=== PATIENT | male | born 1960 | race Caucasian/White ===

== ENCOUNTER 2018-01-28 20:46 | Inpatient (IN) | payer SELFPAY ==
[2018-01-28 21:00] LABS: ADD MAN DIFF? NO
[2018-01-28 21:04] LABS: BASO # 0.1 x10^3/uL (0.0-0.2); BASO % 1 % (0-3); EOS # 0.1 x10^3/uL (0.0-0.7); EOS % 1 % (0-3); HEMATOCRIT 49.7 % (39.0-53.0); HEMOGLOBIN 17.8 g/dL (13.0-17.5); LYMPH # 2.5 x10^3/uL (1.0-4.8); LYMPH % 20 % (24-48); MEAN CORPUSCULAR HEMOGLOBIN 31 pg (25-35); MEAN CORPUSCULAR HGB CONC 36 g/dL (31-37); MEAN CORPUSCULAR VOLUME 86 fL (79-100); MONO # 0.8 x10^3/uL (0.0-1.1); MONO % 6 % (0-9); NEUT # 8.9 x10^3uL (1.8-7.7); NEUT % 72 % (31-73); PLATELET COUNT 194 x10^3/uL (140-400); RED CELL DISTRIBUTION WIDTH 13.9 % (11.5-14.5); WHITE BLOOD COUNT 12.3 x10^3/uL (4.0-11.0)
[2018-01-28] MEDS: ASPIRIN CHEWABLE 81 MG TABLET. PO (21:07)
[2018-01-28 21:11] LABS: ANION GAP 7 (6-14); BLOOD UREA NITROGEN 18 mg/dL (8-26); BUN/CREATININE RATIO 18 (6-20); CALCIUM 9.4 mg/dL (8.5-10.1); CARBON DIOXIDE 26 mmol/L (21-32); CHLORIDE 101 mmol/L (98-107); GFR 77.3; GLUCOSE 188 mg/dL (70-99); POTASSIUM 3.6 mmol/L (3.5-5.1); SODIUM 134 mmol/L (136-145)
[2018-01-28 21:18] LABS: ALK PHOS 107 U/L (46-116); ALT (SGPT) 32 U/L (16-63); AST (SGOT) 20 U/L (15-37); TOTAL BILIRUBIN 0.7 mg/dL (0.2-1.0); TOTAL PROTEIN 7.9 g/dL (6.4-8.2)
[2018-01-28 21:19] LABS: TROPONINI < 0.017 ng/mL (0.000-0.055)
[2018-01-28 21:22] LABS: NT-PRO BNP 56 pg/mL (0-124)
[2018-01-28] MEDS: ONDANSETRON PF 4 MG/2 ML VIAL. IV (21:33)
[2018-01-28] MEDS: fentaNYL PF VIAL 100 MCG/2 ML VIAL IV (21:33)
[2018-01-28] MEDS: NITROGLYCERIN SUBLINGUAL 0.4 MG BOTTLE OF 25. SL (21:33)
[2018-01-28] MEDS ORDERED: ONDANSETRON PF 4 MG/2 ML VIAL. IV (21:45)
[2018-01-28] MEDS ORDERED: ACETAMINOPHEN 325 MG TABLET. PO (21:45)
[2018-01-28] MEDS ORDERED: fentaNYL PF VIAL 100 MCG/2 ML VIAL IV (21:45)
[2018-01-28] MEDS: NITROGLYCERIN OINT 1 GM PACKET. TP (21:56)
[2018-01-29 02:03] LABS: TROPONINI < 0.017 ng/mL (0.000-0.055)
[2018-01-29 05:02] LABS: TROPONINI < 0.017 ng/mL (0.000-0.055)
[2018-01-29] MEDS ORDERED: HYDROcodone/APAP 7.5/325MG 1 TAB TABLET PO (08:30)
[2018-01-29 08:53] LABS: CHOLESTEROL 128 mg/dL (0-200); CHOLESTEROL/HDL RATIO 6.1; HDLC 21 mg/dL (40-60); LDLC 34 mg/dL (0-100); NON-HDL CHOLESTEROL 107 mg/dL (0-129); TRIGLYCERIDES 364 mg/dL (0-150); VLDLC 73 mg/dL (0-40)
[2018-01-29 10:58] LABS: POC GLUCOSE 216 mg/dL (70-99)
[2018-01-29] MEDS ORDERED: DEXTROSE 50% 25 GM / 50ML DISP.SYRIN. IV (11:00)
[2018-01-29 11:18] LABS: MAGNESIUM 1.8 mg/dL (1.8-2.4)
[2018-01-29] MEDS: REGADENOSON 0.4 MG/5 ML DISP.SYRIN. IV (14:09)
[2018-01-29] MEDS: ASPIRIN ENTERIC COATED 81 MG TABLET.DR. PO (15:01)
[2018-01-29] MEDS: GLIMEPIRIDE 2 MG TABLET. PO (15:01)
[2018-01-29] MEDS: metFORMIN 500 MG TABLET PO ×2 (15:01→16:44)
[2018-01-29] MEDS: PANTOPRAZOLE 40 MG TABLET.DR. PO (15:01)
[2018-01-29 20:51] LABS: POC GLUCOSE 167 mg/dL (70-99)
[2018-01-29] MEDS: SIMVASTATIN 20 MG TABLET PO (21:12)
[2018-01-29 22:17] LABS: MRSA BY PCR Negative (Negative)
[2018-01-30] MEDS: PANTOPRAZOLE 40 MG TABLET.DR. PO (06:30)
[2018-01-30] MEDS: metFORMIN 500 MG TABLET PO (07:25)
[2018-01-30] MEDS: ASPIRIN ENTERIC COATED 81 MG TABLET.DR. PO (07:26)
[2018-01-30] MEDS: GLIMEPIRIDE 2 MG TABLET. PO (07:27)
[2018-01-30 08:16] LABS: POC GLUCOSE 219 mg/dL (70-99)
[2018-01-30 12:00] LABS: POC GLUCOSE 213 mg/dL (70-99)
== END 2018-01-30 15:32 | disposition home or self-care (01) | DRG 316 ==
LOC: 2 NORTH 01-29 15:54 → ER 20:46 → 1 WEST ICU 21:35
DX: I95.9 Hypotension, unspecified (principal); E11.65 Type 2 diabetes mellitus with hyperglycemia; R07.89 Other chest pain; E66.9 Obesity, unspecified; E78.5 Hyperlipidemia, unspecified; F17.210 Nicotine dependence, cigarettes, uncomplicated; G47.33 Obstructive sleep apnea (adult) (pediatric); I10 Essential (primary) hypertension; K21.9 Gastro-esophageal reflux disease without esophagitis; G89.29 Other chronic pain; M19.90 Unspecified osteoarthritis, unspecified site; Z96.659 Presence of unspecified artificial knee joint; N52.9 Male erectile dysfunction, unspecified; Z79.82 Long term (current) use of aspirin; Z82.49 Family history of ischemic heart disease and other diseases of the circulatory system; Z86.010 Personal history of colon polyps; Z68.34 Body mass index [BMI] 34.0-34.9, adult; Z71.6 Tobacco abuse counseling; Z90.49 Acquired absence of other specified parts of digestive tract
CPT/HCPCS: 36415; 71045; 78452; 80053; 80061; 82962; 83735; 83880; 84484; 85025; 85379; 87641; 93005; 93017; 93306; 96374; 96375; 96376; 99285; 99285-25; A9500; J2405; J2785; J3010

== ENCOUNTER 2018-12-18 16:33 | Inpatient (IN) | payer OTHER ==
[~2018-12-18] VITALS: Ht 180.3 cm; Wt 113.4 kg
[~2018-12-18 16:33] MED LIST: AMLO10TA8 PO; ASPI-612 PO; ATOR40TA59 PO; GABA300C18 PO; GLIM1TAB2 PO; HYDR-2765 PO; HYDR-3164 PO; HYDR12.575 PO; HYDR12.58 PO; HYDR200T5 PO; LEVO50TA5 PO; LISI20TA PO; LOSA-73 PO; MELO7.5T29 PO; METF500T16 PO; OMEP40CA5 PO; SIMV10TA PO; SIMV20TA3 PO; TIZA4TAB PO
[2018-12-18 17:01] LABS: BASO # 0.1 x10^3/uL (0.0-0.2); BASO % 1 % (0-3); EOS # 0.1 x10^3/uL (0.0-0.7); EOS % 2 % (0-3); HEMOGLOBIN 16.6 g/dL (13.0-17.5); LYMPH # 1.8 x10^3/uL (1.0-4.8); LYMPH % 20 % (24-48); MEAN CORPUSCULAR HEMOGLOBIN 30 pg (25-35); MEAN CORPUSCULAR HGB CONC 35 g/dL (31-37); MEAN CORPUSCULAR VOLUME 87 fL (79-100); MONO # 0.5 x10^3/uL (0.0-1.1); MONO % 5 % (0-9); NEUT # 6.7 x10^3uL (1.8-7.7); NEUT % 73 % (31-73); PLATELET COUNT 164 x10^3/uL (140-400); RED BLOOD COUNT 5.55 x10^6/uL (4.30-5.70); WHITE BLOOD COUNT 9.2 x10^3/uL (4.0-11.0)
[2018-12-18 17:10] LABS: CALCIUM 9.3 mg/dL (8.5-10.1); CREATININE 1.1 mg/dL (0.7-1.3); POTASSIUM 3.9 mmol/L (3.5-5.1)
--- NOTE | 2018-12-18 17:13 | PHYS DOC ---
Past Medical History Past Medical History: Diabetes-Type II, GERD, High Cholesterol, Hypertension Additional Past Medical Histor: Neuropathy, CHRONIC PAIN Past Surgical History: Cholecystectomy, Knee Replacement Additional Past Surgical Histo: neck surgery Smoking: Cigarettes Alcohol Use: None Drug Use: None Adult General Chief Complaint Chief Complaint: syncope HPI HPI 58-year-old male presenting the emergency department today [place] bank[place] He reports prior to the event he was feeling fine. He then passed out. This was a witnessed event. He was out for about 2 minutes and he reports having a generalized shaking episode of his upper and lower extremities. He did not bite his tongue or have fecal or urinary incontinence. He then had a postictal confusion. Past medical history: Emphysema, hypertension, hyperlipidemia, diabetes mellitus Past surgical history: History of cholecystectomy, knee surgery, and neck surgery Social history, denies IV drug use. Endorses smoking and denies drinking alcohol. Review of systems is negative for chest pain shortness of breath abdominal pain fevers chills headache neck stiffness. All other review of systems is negative unless otherwise noted in history of present illness. ED course: 58-year-old male presenting the emergency department today with syncopal episode. EKG ordered along with blood work and head CT and x-rays of the low back as the patient has low back pain after his fall. EKG reviewed by myself shows sinus rhythm with a regular rate. ST segments are congruent. Not suggestive of ACS. X-rays reviewed of the lumbar spine, sacrum, and chest x-ray. Sacrum shows probable sacral fracture. Lumbar spine shows no obvious acute abnormality. Chest x-ray shows mild increased congestion without effusions. Otherwise no obvious acute abnormalities. Reviewed by myself in real-time without radiology reads. Patient's magnesium is low. We will replace the magnesium. We will admit the patient for telemetry. I spoke to Dr. biswas who accepts the patient for admission. Troponin negative. Review of Systems Review of Systems SEE ABOVE. Current Medications Current Medications Current Medications Medications (Trade) Dose Ordered Sig/Elie Start Time Stop Time Status Last Admin Dose Admin Fentanyl Citrate (Fentanyl 2ml Vial) 50 mcg PRN Q30MIN PRN 12/18/18 18:00 Magnesium Sulfate 50 ml @ 10 mls/hr 1X ONCE 12/18/18 18:45 12/18/18 23:44 UNV Morphine Sulfate (Morphine Sulfate) 2 mg PRN Q2HR PRN 12/18/18 17:45 12/19/18 17:44 12/18/18 18:10 2 MG Ondansetron HCl (Zofran) 4 mg PRN Q8HRS PRN 12/18/18 17:45 12/19/18 17:44 12/18/18 18:10 4 MG Sodium Chloride 1,000 ml @ 100 mls/hr Q10H 12/18/18 17:37 12/18/18 21:36 Allergies Allergies Allergies Coded Allergies Type Severity Reaction Last Updated Verified No Known Drug Allergies 12/16/14 No Physical Exam Physical Exam SEE ABOVE Constitutional: Well developed, well nourished, no acute distress, non-toxic appearance. HENT: Normocephalic, atraumatic, bilateral external ears normal, oropharynx moist, no oral exudates, nose normal. [] Eyes: PERRLA, EOMI, conjunctiva normal, no discharge. Neck: Normal range of motion, no tenderness, supple, no stridor. Cardiovascular:Heart rate regular rhythm, no murmur Lungs & Thorax: Bilateral breath sounds clear to auscultation Abdomen: Bowel sounds normal, soft, no tenderness, no masses, no pulsatile masses. [] Skin: Warm, dry, no erythema, no rash. Back: Patient has mild tenderness of the lower lumbar and sacrum. No step-offs abrasions lacerations or ecchymosis. Extremities: No tenderness, no cyanosis, no clubbing, ROM intact, no edema. Palpable pulses in upper extremities bilaterally. Neurologic: Alert and oriented X 3, normal motor function, normal sensory function, no focal deficits noted. [] Psychologic: Affect normal, judgement normal, mood normal. Current Patient Data Vital Signs Vital Signs Date Time Temp Pulse Resp B/P (MAP) Pulse Ox O2 Delivery O2 Flow Rate FiO2 12/18/18 18:10 20 94 Nasal Cannula 3.0 12/18/18 16:33 98.1 100 115/72 (86) 98.1 Lab Values Laboratory Tests Test 12/18/18 16:45 White Blood Count 9.2 x10^3/uL (4.0-11.0) Red Blood Count 5.55 x10^6/uL (4.30-5.70) Hemoglobin 16.6 g/dL (13.0-17.5) Hematocrit 48.0 % (39.0-53.0) Mean Corpuscular Volume 87 fL (79-100) Mean Corpuscular Hemoglobin 30 pg (25-35) Mean Corpuscular Hemoglobin Concent 35 g/dL (31-37) Red Cell Distribution Width 14.0 % (11.5-14.5) Platelet Count 164 x10^3/uL (140-400) Neutrophils (%) (Auto) 73 % (31-73) Lymphocytes (%) (Auto) 20 % (24-48) L Monocytes (%) (Auto) 5 % (0-9) Eosinophils (%) (Auto) 2 % (0-3) Basophils (%) (Auto) 1 % (0-3) Neutrophils # (Auto) 6.7 x10^3uL (1.8-7.7) Lymphocytes # (Auto) 1.8 x10^3/uL (1.0-4.8) Monocytes # (Auto) 0.5 x10^3/uL (0.0-1.1) Eosinophils # (Auto) 0.1 x10^3/uL (0.0-0.7) Basophils # (Auto) 0.1 x10^3/uL (0.0-0.2) Sodium Level 138 mmol/L (136-145) Potassium Level 3.9 mmol/L (3.5-5.1) Chloride Level 99 mmol/L (98-107) Carbon Dioxide Level 31 mmol/L (21-32) Anion Gap 8 (6-14) Blood Urea Nitrogen 13 mg/dL (8-26) Creatinine 1.1 mg/dL (0.7-1.3) Estimated GFR (Cockcroft-Gault) 69.0 BUN/Creatinine Ratio 12 (6-20) Glucose Level 209 mg/dL (70-99) H Calcium Level 9.3 mg/dL (8.5-10.1) Magnesium Level 1.7 mg/dL (1.8-2.4) L Total Bilirubin 0.8 mg/dL (0.2-1.0) Aspartate Amino Transferase (AST) 20 U/L (15-37) Alanine Aminotransferase (ALT) 32 U/L (16-63) Alkaline Phosphatase 111 U/L (46-116) Troponin I Quantitative < 0.017 ng/mL (0.000-0.055) Total Protein 7.3 g/dL (6.4-8.2) Albumin 4.0 g/dL (3.4-5.0) Albumin/Globulin Ratio 1.2 (1.0-1.7) Laboratory Tests 12/18/18 16:45 Laboratory Tests 12/18/18 16:45 EKG EKG [] Radiology/Procedures Radiology/Procedures [] Course & Med Decision Making Course & Med Decision Making Pertinent Labs and Imaging studies reviewed. (See chart for details) [] Dragon Disclaimer Dragon Disclaimer This electronic medical record was generated, in whole or in part, using a voice recognition dictation system. Departure Departure Impression: Primary Impression: Syncope Disposition: 09 ADMITTED INPATIENT Admitting Physician: Kathleen Biswas Condition: STABLE Referrals: DIANNA LENNON MD (PCP) PABLO DE LA PAZ MD Dec 18, 2018 17:13
[2018-12-18 17:16] LABS: ALBUMIN/GLOBULIN RATIO 1.2 (1.0-1.7); MAGNESIUM 1.7 mg/dL (1.8-2.4); TOTAL BILIRUBIN 0.8 mg/dL (0.2-1.0); TOTAL PROTEIN 7.3 g/dL (6.4-8.2)
[2018-12-18] MEDS ORDERED: IV NORMAL SALINE 1000ML BAG 1,000 ML IV ONE (17:30)
[2018-12-18] MEDS ORDERED: IV NORMAL SALINE 1000ML BAG 1,000 ML IV SCH (17:37)
--- NOTE | 2018-12-18 17:42 | RAD ---
CT HEAD WO CONTRAST History: Syncope for 2 minutes Comparison: March 10, 2015 Technique: Noncontrast CT imaging was performed of the head. Exposure: One or more of the following individualized dose reduction techniques were utilized for this examination: 1. Automated exposure control 2. Adjustment of the mA and/or kV according to patient size 3. Use of iterative reconstruction technique. Findings: There is mild motion. No acute extra-axial or parenchymal hemorrhage is identified. There is no significant intra-axial mass effect, midline shift, or extra-axial fluid collection. The mccollum-white differentiation of the major vascular territories is preserved. The ventricles, sulci, and cisterns are within normal limits in size and configuration. Mastoid air cells are aerated. There is moderate to severe right maxillary sinus mucosal thickening. No acute calvarial abnormality is identified. Impression: 1. No acute intracranial abnormality is identified. Electronically signed by: Mata Irizarry MD (12/18/2018 5:39 PM) [facility]
[2018-12-18] MEDS ORDERED: ONDANSETRON PF 4 MG/2 ML VIAL. IV PRN (17:45)
[2018-12-18] MEDS ORDERED: fentaNYL PF VIAL 100 MCG/2 ML VIAL IV PRN (18:00)
[2018-12-18] MEDS: MORPHINE SULFATE 2 MG/ML VIAL. IV PRN ×2 (18:10→20:24)
[2018-12-18] MEDS ORDERED: MAGNESIUM SULFATE 2GM 50 ML IV ONE (18:45)
--- NOTE | 2018-12-18 19:32 | RAD ---
LUMBAR SPINE 2-3V History: Fall today, syncopal episode, pain Comparison: April 19, 2016 Findings: 3 views lumbar spine are submitted. There is very mild superior endplate concavity of L1 more apparent on this exam. There is facet degenerative change greater inferiorly of the lumbar spine. Impression: 1. There is mild superior endplate concavity of L1 more apparent on this exam. MRI would more accurately characterize if there is recent compression fracture. Electronically signed by: Mata Irizarry MD (12/18/2018 7:29 PM) [facility]
--- NOTE | 2018-12-18 19:34 | RAD ---
PORTABLE CHEST 1V History: Fall today, pain, syncopal episode Comparison: January 28, 2018 Findings: AP view of the chest is submitted. There is cervical fusion hardware not fully included. Cardiac silhouette is stable. There is no dependent pleural fluid or pneumothorax. There is no lobar consolidation. There is no apical capping. Aortic stripe is visualized. Impression: 1. No acute radiographic abnormality is identified. Electronically signed by: Mata Irizarry MD (12/18/2018 7:31 PM) [facility]
--- NOTE | 2018-12-18 19:39 | RAD ---
SACRUM COCCYX 3V History: Trauma, fall today, sacral pain radiating to the lumbar region Comparison: None. Findings: 3 views of the sacrum and coccyx are submitted. No acute fracture is identified by radiographs. Impression: 1. No acute fracture is identified of the sacrum or coccyx by radiographs. Electronically signed by: Mata Irizarry MD (12/18/2018 7:36 PM) [facility]
[2018-12-18 19:56] VITALS: BP 135/88
[2018-12-18] MEDS ORDERED: HYDROcodone/APAP 7.5/325MG 1 TAB TABLET PO PRN (20:00)
[2018-12-18] MEDS ORDERED: BUDE10.2 IH (21:32)
[2018-12-18] MEDS ORDERED: ALBU2.5V8 INH (21:32)
[2018-12-18] MEDS ORDERED: HYDR-2769 PO (21:32)
[2018-12-18 23:15] VITALS: BP 113/72
[2018-12-19] VITALS (8 sets, daily range): BP systolic 117–139; BP diastolic 68–90
[2018-12-19] MEDS: MORPHINE SULFATE 2 MG/ML VIAL. IV PRN (00:38)
[2018-12-19 05:37] LABS: BASO % 0 % (0-3); EOS # 0.1 x10^3/uL (0.0-0.7); EOS % 2 % (0-3); HEMATOCRIT 46.7 % (39.0-53.0); HEMOGLOBIN 16.3 g/dL (13.0-17.5); LYMPH # 1.7 x10^3/uL (1.0-4.8); LYMPH % 18 % (24-48); MEAN CORPUSCULAR HEMOGLOBIN 30 pg (25-35); MEAN CORPUSCULAR HGB CONC 35 g/dL (31-37); MEAN CORPUSCULAR VOLUME 88 fL (79-100); MONO # 0.6 x10^3/uL (0.0-1.1); MONO % 6 % (0-9); NEUT # 6.8 x10^3uL (1.8-7.7); NEUT % 73 % (31-73); PLATELET COUNT 156 x10^3/uL (140-400); RED BLOOD COUNT 5.34 x10^6/uL (4.30-5.70); RED CELL DISTRIBUTION WIDTH 13.7 % (11.5-14.5); WHITE BLOOD COUNT 9.3 x10^3/uL (4.0-11.0)
[2018-12-19 06:03] LABS: ALBUMIN 3.6 g/dL (3.4-5.0); CALCIUM 8.5 mg/dL (8.5-10.1); CREATININE 0.8 mg/dL (0.7-1.3); GFR 99.6; POTASSIUM 4.1 mmol/L (3.5-5.1); TOTAL BILIRUBIN 0.8 mg/dL (0.2-1.0); TOTAL PROTEIN 7.1 g/dL (6.4-8.2)
[2018-12-19] MEDS ORDERED: ALBUTEROL SULFATE 2.5 MG/3 ML NEBU. INH PRN (09:30)
--- NOTE | 2018-12-19 10:11 | HP ---
ADMIT DATE: 12/18/[address] Paul Foster. CHIEF COMPLAINT AND HISTORY OF PRESENT ILLNESS: This 58-year-old white male had purchased a minivan and left at the bank parking lot. He was there with his to pick it up, when he had a fall, which he braced partially backwards, and he feels like she at least protected his head. His major complaint is pain in his tailbone at this point in time. By history of , the patient was out for approximately 2 minutes, had what appeared to be tonic-clonic seizure type activity and some postictal sleepiness afterwards. He denies loss of bowel or bladder or chewing up of his tongue with the same. CT scanning in the Emergency Room was negative of the head. Lumbar spine and sacrococcygeal films did not show acute fracture, and chest x-ray showed no acute abnormalities. CBC was normal, as was basically CMP other than the fact that he did have slightly depressed magnesium at 1.7 and blood sugars of 150-200. PAST MEDICAL HISTORY: Remarkable for diabetes, hyperlipidemia, GERD, hypertension, neuropathy, chronic pain. PAST SURGICAL HISTORY: He has had prior neck surgery, cholecystectomy, knee replacement. SOCIAL HISTORY: He is a smoker, nondrinker, does not use drugs. Lives at home with his . FAMILY HISTORY: Noncontributory. MEDICATIONS: Brought with the patient, listed on the computer and have been addressed. ALLERGIES: He has no known drug allergies. REVIEW OF SYSTEMS: As mentioned above. PHYSICAL EXAMINATION: GENERAL: He is a well-developed, well-nourished white male, lying in bed, in no acute distress. VITAL SIGNS: Stable. He is afebrile. HEAD, EYES, EARS, NOSE AND THROAT: Unremarkable. NECK: Supple, without adenopathy or thyromegaly. CHEST: Clear to auscultation and percussion with somewhat decreased breath sounds. HEART: Regular rate and rhythm without S3, S4 or murmur. ABDOMEN: Soft, nontender, without hepatosplenomegaly or mass. EXTREMITIES: Without cyanosis, clubbing, edema. NEUROLOGIC: Nonfocal. IMPRESSION: 1. Syncope versus seizure, more likely seizure by the description. 2. Multiple other problems listed above. PLAN: The patient has been admitted. Neurology and Cardiology will be seeing the patient for opinions, and the patient will be monitored, managed and treated appropriately. QUINN PRESTON MD DR: Minal JOB#: [id number] / [id number]
--- NOTE | 2018-12-19 11:18 | EKG ---
[facility] [address] [place] [address] Test Date: 2018-12-19 Test Time: 09:15:31 Pat Name: ADOLFO TAM Department: Room: [facility] Gender: Lathe Set Up Person: : 1960 Requested By: PABLO DE LA PAZ Order Number: [id number] Reading MD: Gray Eubanks MD Measurements Intervals Waldo Rate: P: IN: QRS: QRSD: T: QT: QTc: Interpretive Statements SR PVC PROBABLE SEPTAL INFARCT IVCD Electronically Signed On 12-21-2018 10:16:11 CDT by Gray Eubanks MD
[2018-12-19] MEDS: ALBUTEROL SULFATE 2.5 MG/3 ML NEBU. NEB SCH ×3 (11:30→20:03)
[2018-12-19] MEDS: LISINOPRIL 20 MG TABLET PO SCH ×2 (12:10→20:30)
[2018-12-19] MEDS: PANTOPRAZOLE 40 MG TABLET.DR. PO SCH (12:10)
[2018-12-19] MEDS: hydroCHLOROthiazide 25 MG TABLET PO SCH (12:10)
[2018-12-19] MEDS: GLIMEPIRIDE 2 MG TABLET. PO SCH (12:11)
--- NOTE | 2018-12-19 12:44 | PDOC2 ---
CONSULT Date of Consult Date of Consult DATE: 12/19/18 TIME: 12:37 Reason for Consult Reason for Consult: Syncope. Referring Physician Referring Physician: Dr. Varela Identification/Chief Complaint Chief Complaint Syncope Source Source: Patient History of Present Illness Reason for Visit: The patient is a pleasant 58-year-old male who had an episode of syncope prior to presentation in the emergency room. He had purchased a new vehicle yesterday and later in the day was attempting to show his his new van. By his report he became acutely lightheaded and fell. The next memory he has is being held up by his on the ground. He states his reported that he abruptly lost consciousness and she held his head so he would not hit the ground. He denied any chest pain, shortness of breath or any presyncopal symptoms. He reportedly had episodes of shaking immediately at the time of this episode. He was transported to the emergency room and his rhythm has remained stable overnight. CT head scan shows no acute abnormalities. Chest x-ray showed no acute changes. Troponin has been normal. Magnesium was minimally decreased. This morning his main complaint is his back pain after his fall. He denies chest pain, shortness of breath, dizziness or lightheadedness. Denies any previous episodes of syncope. Past Medical History Cardiovascular: HTN, Hyperlipidemia Pulmonary: COPD, Other CENTRAL NERVOUS SYSTEM: Other GI: GERD, Other Hepatobiliary: Hep A/B/C Musculoskeletal: Osteoarthritis Rheumatologic: No pertinent hx Infectious disease: No pertinent hx Renal/: No pertinent hx Endocrine: Diabetes Past Surgical History Past Surgical History: Arthroscopy, Cholecystectomy, Other Family History Family History: Coronary Artery Disease, Heart Disease Social History <1 pack per day ALCOHOL: none Drugs: None Lives: with Family Current Problem List Problem List Problems Medical Problems: (1) Syncope Status: Acute Current Medications Current Medications Current Medications Sodium Chloride 1,000 ml @ 1,000 mls/hr 1X ONCE IV ; Start 12/18/18 at 17:30; Stop 12/18/18 at 18:29; Status DC Ondansetron HCl (Zofran) 4 mg PRN Q8HRS PRN IV NAUSEA/VOMITING Last administered on 12/18/18at 18:10; Start 12/18/18 at 17:45; Stop 12/19/18 at 17:44 Morphine Sulfate (Morphine Sulfate) 2 mg PRN Q2HR PRN IV PAIN Last administered on 12/19/18at 00:38; Start 12/18/18 at 17:45; Stop 12/19/18 at 17:44 Sodium Chloride 1,000 ml @ 100 mls/hr Q10H IV Last administered on 12/18/18at 20:31; Start 12/18/18 at 17:37; Stop 12/18/18 at 21:36; Status DC Fentanyl Citrate (Fentanyl 2ml Vial) 50 mcg PRN Q30MIN PRN IV SEVERE PAIN; Start 12/18/18 at 18:00 Magnesium Sulfate 50 ml @ 10 mls/hr 1X ONCE IV Last administered on 12/18/18at 20:41; Start 12/18/18 at 18:45; Stop 12/18/18 at 23:44; Status DC Acetaminophen/ Hydrocodone Bitart (Lortab 7.5/325) 1 tab PRN Q6HRS PRN PO PAIN ; Start 12/18/18 at 20:00 Albuterol Sulfate (Ventolin Neb Soln) 3 mg PRN Q6HRS PRN INH SHORTNESS OF BREATH; Start 12/19/18 at 09:30 Amlodipine Besylate (Norvasc) 10 mg DAILY PO ; Start 12/20/18 at 09:00 Aspirin (Ecotrin) 81 mg DAILYWBKFT PO ; Start 12/20/18 at 08:00 Atorvastatin Calcium (Lipitor) 40 mg DAILY PO ; Start 12/20/18 at 09:00 Acetaminophen/ Hydrocodone Bitart (Lortab 10/325) 1 tab PRN Q6HRS PRN PO PAIN; Start 12/19/18 at 09:30 Lisinopril (Prinivil) 20 mg BID PO Last administered on 12/19/18at 12:10; Start 12/19/18 at 10:00 Non-Formulary Medication (Budesonide/ Formoterol Fumarate (Symbicort 160-4.5 Mcg Inhaler)) 1 puff BID IH ; Start 12/19/18 at 21:00; Stop 12/19/18 at 21:00; Status DC Glimepiride (Amaryl) 1 mg DAILY PO Last administered on 12/19/18at 12:11; Start 12/19/18 at 10:00 Hydrochlorothiazide (Hydrodiuril) 25 mg DAILY PO Last administered on at 12:10; Start 12/19/18 at 10:00 Metformin HCl (Glucophage) 1,000 mg BIDWMEALS PO ; Start 12/19/18 at 17:00 Pantoprazole Sodium (Protonix) 40 mg DAILYAC PO Last administered on 12/19/18at 12:10; Start 12/19/18 at 10:00 Budesonide (Pulmicort) 0.5 mg RTBID NEB ; Start 12/19/18 at 20:00 Albuterol Sulfate (Ventolin Neb Soln) 2.5 mg RTQID NEB Last administered on at 11:30; Start 12/19/18 at 12:00 Active Scripts Active Atorvastatin Calcium 40 Mg Tablet 1 Tab PO DAILY 30 Days Aspirin Ec (Aspirin) 81 Mg Tablet.dr 81 Mg PO DAILYWBKFT 30 Days Prinivil (Lisinopril) 20 Mg Tablet 20 Mg PO BID Reported Proair Hfa Inhaler (Albuterol Sulfate) 8.5 Gm Hfa.aer.ad 1 Puff INH PRN Q6HRS PRN Symbicort 160-4.5 Mcg Inhaler (Budesonide/Formoterol Fumarate) 10.2 Gm Hfa.aer.ad 1 Puff IH BID Hydrocodone-Apap 10-325 (Hydrocodone Bit/Acetaminophen) 1 Tab Tablet 1 Tab PO PRN Q6HRS PRN Glimepiride 1 Mg Tablet 1 Tab PO DAILY Hydrochlorothiazide Tablet (Hydrochlorothiazide) 12.5 Mg Tablet 2 Tab PO DAILY Amlodipine Besylate 10 Mg Tablet 10 Mg PO DAILY Omeprazole 40 Mg Capsule.dr 40 Mg PO DAILY Metformin Hcl 500 Mg Tablet 1,000 Mg PO BIDWMEALS Allergies Allergies: Coded Allergies: No Known Drug Allergies (Unverified , 12/16/14) ROS Neurological: Yes Other (syncope as above) Physical Exam General: No acute distress HEENT: Atraumatic Lungs: Clear to auscultation Heart: Regular rate Abdomen: Normal bowel sounds Vitals VITALS Vital Signs Date Time Temp Pulse Resp B/P (MAP) Pulse Ox O2 Delivery O2 Flow Rate FiO2 12/19/18 12:10 83 139/90 12/19/18 11:32 96 Nasal Cannula 3.0 12/19/18 10:55 98.0 20 98.0 Labs Labs Laboratory Tests Test 12/18/18 16:45 12/19/18 05:00 White Blood Count 9.2 x10^3/uL (4.0-11.0) 9.3 x10^3/uL (4.0-11.0) Red Blood Count 5.55 x10^6/uL (4.30-5.70) 5.34 x10^6/uL (4.30-5.70) Hemoglobin 16.6 g/dL (13.0-17.5) 16.3 g/dL (13.0-17.5) Hematocrit 48.0 % (39.0-53.0) 46.7 % (39.0-53.0) Mean Corpuscular Volume 87 fL (79-100) 88 fL (79-100) Mean Corpuscular Hemoglobin 30 pg (25-35) 30 pg (25-35) Mean Corpuscular Hemoglobin Concent 35 g/dL (31-37) 35 g/dL (31-37) Red Cell Distribution Width 14.0 % (11.5-14.5) 13.7 % (11.5-14.5) Platelet Count 164 x10^3/uL (140-400) 156 x10^3/uL (140-400) Neutrophils (%) (Auto) 73 % (31-73) 73 % (31-73) Lymphocytes (%) (Auto) 20 % (24-48) 18 % (24-48) Monocytes (%) (Auto) 5 % (0-9) 6 % (0-9) Eosinophils (%) (Auto) 2 % (0-3) 2 % (0-3) Basophils (%) (Auto) 1 % (0-3) 0 % (0-3) Neutrophils # (Auto) 6.7 x10^3uL (1.8-7.7) 6.8 x10^3uL (1.8-7.7) Lymphocytes # (Auto) 1.8 x10^3/uL (1.0-4.8) 1.7 x10^3/uL (1.0-4.8) Monocytes # (Auto) 0.5 x10^3/uL (0.0-1.1) 0.6 x10^3/uL (0.0-1.1) Eosinophils # (Auto) 0.1 x10^3/uL (0.0-0.7) 0.1 x10^3/uL (0.0-0.7) Basophils # (Auto) 0.1 x10^3/uL (0.0-0.2) 0.0 x10^3/uL (0.0-0.2) Sodium Level 138 mmol/L (136-145) 141 mmol/L (136-145) Potassium Level 3.9 mmol/L (3.5-5.1) 4.1 mmol/L (3.5-5.1) Chloride Level 99 mmol/L (98-107) 104 mmol/L (98-107) Carbon Dioxide Level 31 mmol/L (21-32) 29 mmol/L (21-32) Anion Gap 8 (6-14) 8 (6-14) Blood Urea Nitrogen 13 mg/dL (8-26) 15 mg/dL (8-26) Creatinine 1.1 mg/dL (0.7-1.3) 0.8 mg/dL (0.7-1.3) Estimated GFR (Cockcroft-Gault) 69.0 99.6 BUN/Creatinine Ratio 12 (6-20) 19 (6-20) Glucose Level 209 mg/dL (70-99) 162 mg/dL (70-99) Calcium Level 9.3 mg/dL (8.5-10.1) 8.5 mg/dL (8.5-10.1) Magnesium Level 1.7 mg/dL (1.8-2.4) Total Bilirubin 0.8 mg/dL (0.2-1.0) 0.8 mg/dL (0.2-1.0) Aspartate Amino Transf (AST/SGOT) 20 U/L (15-37) 23 U/L (15-37) Alanine Aminotransferase (ALT/SGPT) 32 U/L (16-63) 33 U/L (16-63) Alkaline Phosphatase 111 U/L (46-116) 94 U/L (46-116) Troponin I Quantitative < 0.017 ng/mL (0.000-0.055) SB-Dqa-Y-Type Natriuretic Peptide 34 pg/mL (0-124) Total Protein 7.3 g/dL (6.4-8.2) 7.1 g/dL (6.4-8.2) Albumin 4.0 g/dL (3.4-5.0) 3.6 g/dL (3.4-5.0) Albumin/Globulin Ratio 1.2 (1.0-1.7) 1.0 (1.0-1.7) Laboratory Tests Test 12/18/18 16:45 12/19/18 05:00 White Blood Count 9.2 x10^3/uL (4.0-11.0) 9.3 x10^3/uL (4.0-11.0) Red Blood Count 5.55 x10^6/uL (4.30-5.70) 5.34 x10^6/uL (4.30-5.70) Hemoglobin 16.6 g/dL (13.0-17.5) 16.3 g/dL (13.0-17.5) Hematocrit 48.0 % (39.0-53.0) 46.7 % (39.0-53.0) Mean Corpuscular Volume 87 fL (79-100) 88 fL (79-100) Mean Corpuscular Hemoglobin 30 pg (25-35) 30 pg (25-35) Mean Corpuscular Hemoglobin Concent 35 g/dL (31-37) 35 g/dL (31-37) Red Cell Distribution Width 14.0 % (11.5-14.5) 13.7 % (11.5-14.5) Platelet Count 164 x10^3/uL (140-400) 156 x10^3/uL (140-400) Neutrophils (%) (Auto) 73 % (31-73) 73 % (31-73) Lymphocytes (%) (Auto) 20 % (24-48) 18 % (24-48) Monocytes (%) (Auto) 5 % (0-9) 6 % (0-9) Eosinophils (%) (Auto) 2 % (0-3) 2 % (0-3) Basophils (%) (Auto) 1 % (0-3) 0 % (0-3) Neutrophils # (Auto) 6.7 x10^3uL (1.8-7.7) 6.8 x10^3uL (1.8-7.7) Lymphocytes # (Auto) 1.8 x10^3/uL (1.0-4.8) 1.7 x10^3/uL (1.0-4.8) Monocytes # (Auto) 0.5 x10^3/uL (0.0-1.1) 0.6 x10^3/uL (0.0-1.1) Eosinophils # (Auto) 0.1 x10^3/uL (0.0-0.7) 0.1 x10^3/uL (0.0-0.7) Basophils # (Auto) 0.1 x10^3/uL (0.0-0.2) 0.0 x10^3/uL (0.0-0.2) Sodium Level 138 mmol/L (136-145) 141 mmol/L (136-145) Potassium Level 3.9 mmol/L (3.5-5.1) 4.1 mmol/L (3.5-5.1) Chloride Level 99 mmol/L (98-107) 104 mmol/L (98-107) Carbon Dioxide Level 31 mmol/L (21-32) 29 mmol/L (21-32) Anion Gap 8 (6-14) 8 (6-14) Blood Urea Nitrogen 13 mg/dL (8-26) 15 mg/dL (8-26) Creatinine 1.1 mg/dL (0.7-1.3) 0.8 mg/dL (0.7-1.3) Estimated GFR (Cockcroft-Gault) 69.0 99.6 BUN/Creatinine Ratio 12 (6-20) 19 (6-20) Glucose Level 209 mg/dL (70-99) 162 mg/dL (70-99) Calcium Level 9.3 mg/dL (8.5-10.1) 8.5 mg/dL (8.5-10.1) Magnesium Level 1.7 mg/dL (1.8-2.4) Total Bilirubin 0.8 mg/dL (0.2-1.0) 0.8 mg/dL (0.2-1.0) Aspartate Amino Transf (AST/SGOT) 20 U/L (15-37) 23 U/L (15-37) Alanine Aminotransferase (ALT/SGPT) 32 U/L (16-63) 33 U/L (16-63) Alkaline Phosphatase 111 U/L (46-116) 94 U/L (46-116) Troponin I Quantitative < 0.017 ng/mL (0.000-0.055) PW-Qwv-Z-Type Natriuretic Peptide 34 pg/mL (0-124) Total Protein 7.3 g/dL (6.4-8.2) 7.1 g/dL (6.4-8.2) Albumin 4.0 g/dL (3.4-5.0) 3.6 g/dL (3.4-5.0) Albumin/Globulin Ratio 1.2 (1.0-1.7) 1.0 (1.0-1.7) Images Images Chest x-ray shows no acute changes. CT scan of the head shows no acute changes Assessment/Plan Assessment/Plan 1. Syncopal episode. Events outlined as above. Rhythm has been stable overnight. Troponin is normal. Patient has no ischemic EKG changes. We'll continue on monitoring. We'll check an echo for LV systolic function. Symptoms are suggestive of a possible seizure disorder. 2. Hypertension. Blood pressure is under reasonable control. Will continue to monitor. 3. History of hyperlipidemia. Lipid panel is pending. 4. Diabetes mellitus. As per the primary service. Thank you for allowing us to participate in the care of your patient. JANELLE AMAYA MD Dec 19, 2018 12:44
[2018-12-19] MEDS: metFORMIN 500 MG TABLET PO SCH (17:17)
[2018-12-19] MEDS ORDERED: MORPHINE SULFATE 2 MG/ML VIAL. IV PRN (17:30)
[2018-12-19] MEDS: BUDESONIDE 0.5 MG/2 ML NEBU. NEB SCH (20:03)
[2018-12-19] MEDS ORDERED: NON FORMULARY ITEM (Budesonide/Formoterol Fumarate (Symbicort 160-4.5 Mcg Inhaler) 1 PUFF) IH SCH (21:00)
--- NOTE | 2018-12-20 00:56 | CONS ---
DATE OF CONSULTATION: 12/19/2018 REFERRING PHYSICIAN: Mata Varela M.D. REASON FOR CONSULTATION: Syncope. HISTORY OF PRESENT ILLNESS: The patient is a very pleasant 58-year-old man who was in a parking lot exchanging cars with his when suddenly he lost consciousness and shook. He did not have any warning of a spell coming on. The next thing he remembers is his telling him not to move. She was in the process of calling 911. She told him that he fell backwards and he fell on her feet. She was behind him and was maintaining him in a sitting position. He did not strike his head. She told him he shook for perhaps a minute or two. Following the shaking, he was able to wake up and respond, although was slightly sleepy and out of it. He did strike his tailbone, which is quite sore at this time. He has never had a similar spell. He has no history of seizure disorder. He reports that he had eaten lunch previously. He had slept normally the night before and was not sleep deprived. He has not started any new medications to his regimen. He does have diabetes and does monitor his sugars. His sugars lately have been running high and not low. He did not feel shaky or diaphoretic prior to or following the spell. When he arrived in the Emergency Room, he was feeling hot and sweaty when everybody else said it was cool. PAST MEDICAL HISTORY: 1. Diabetes. 2. Hyperlipidemia. 3. Gastroesophageal reflux disease. 4. Hypertension. 5. History of neuropathy. 6. Chronic pain. 7. Cervical spine surgery. 8. Cholecystectomy. 9. Knee replacement. 10. Emphysema. ALLERGIES: No known allergies to drugs. MEDICATIONS PRIOR TO ADMISSION: Albuterol metered dose inhaler as needed, amlodipine 10 mg, aspirin 81 mg, atorvastatin 40 mg, Symbicort twice per day, glimepiride daily, hydrochlorothiazide, hydrocodone/acetaminophen every 6 hours as needed, lisinopril 20 mg twice per day, metformin 1000 mg twice per day and omeprazole 40 mg. FAMILY HISTORY: Noncontributory. He denies anyone at body in the family having seizure disorder. SOCIAL HISTORY: He is . He retired 3 years ago. His continues to work at [employer]. He continues to smoke tobacco despite increasing difficulty with shortness of breath. He does not drink alcohol or use recreational drugs. REVIEW OF SYSTEMS: He has not had any headache. There has been no change of vision, hearing or cognition. He does not complain of nose or sinus difficulty. He has been able to chew and swallow without difficulty. He has not had any chest or abdominal pain. He does not have any chest or abdominal pain. He does have coccyx pain and is uncomfortable to sit. He has not had fever or rash. Does not have any constipation or diarrhea. He does have urinary urgency. He does occasionally have numbness in his legs and feet. He does not normally have any difficulty with balance or falls. He denies any psychiatric concerns. He does not complain of bruising, bleeding or swelling. PHYSICAL EXAMINATION: VITAL SIGNS: The blood pressure sitting was 139/90, pulse 83, respirations 20 and temperature 98 degrees Fahrenheit. Oximetry was 95% on 3 liters nasal cannula. His weight was 250 pounds and height 71 inches with a calculated body mass index of 34.9. GENERAL: He was alert, awake and cooperative. Speech was fluent and clear. He had a good fund of recent and remote knowledge. Attention and concentration was intact. He appeared well groomed and well nourished. He was fully oriented. NEUROLOGICAL: Examination of the cranial nerves revealed visual kenney were full to confrontation. Extraocular movements were intact. The eyes were conjugate. Pursuit movements were smooth and saccadic eye movements were without dysmetria. Pupils were 3 mm and reactive. Funduscopic exam did not reveal papilledema, exudate or hemorrhage. Facial sensation was intact. The muscles of mastication and facial expression were powerful symmetrically. Hearing was intact to finger rub. The palate arched symmetrically and the tongue was midline with full range of motion. Sternocleidomastoid and trapezius were powerful. Muscle bulk and tone was normal. There was no arm drift or abnormal movement. There was no leg drift. The power was full and symmetric in upper and lower extremities. Reflexes 2/4 and symmetric in the upper and lower extremities but only trace at the ankles. Toes were downgoing. Coordination testing with [id number], zlxv-[id number], fine motor and rapid alternating movements was well performed. Sensory exam was intact to pain, light touch, proprioception, graphesthesia, cold thermal and vibration. There was no extinction to double simultaneous stimulation. Gait was normal based and steady. He could walk a few steps on heels or toes. Romberg stance was negative. NECK: Auscultation of the carotid arteries did not reveal bruit. HEART: Rhythm is regular, without murmur. EXTREMITIES: Peripheral pulses were symmetric. There was no edema or cyanosis. LABORATORY DATA: Review of laboratory data: CBC revealed a normal white blood cell count, hemoglobin, hematocrit and platelet count. Electrolytes were normal. Glucose was elevated at 162. BUN and creatinine were normal. Liver enzymes were not elevated. Troponin was not elevated. Calcium, total protein and albumin were normal. BNP was not elevated. Magnesium was low at 1.7. RADIOLOGICAL DATA: CT scan of the head was performed without contrast on 12/18/2018. There was no acute intracranial process identified. Chest x-ray was performed 12/18/2018 and revealed no acute radiologic abnormality. Lumbar spine x-ray was performed 12/18/2018 and revealed no definite acute fracture. Image of the coccyx was performed 12/18/2018, which did not reveal an acute fracture. IMPRESSION: The patient is a pleasant 58-year-old man who had an episode of syncope in a parking lot and he was exchanging cars with his . The cause of this is not clear. There was concern he may have had some shaking motions. It sounds as if he started to create memory when on the ground, just after he stopped shaking. If one had had a generalized tonic-clonic seizure truly lasting 2 minutes, he would not wake up immediately. He would have been in a comatose state for at least 10-20 minutes before he started to come around and then would have been lethargic and sleepy. It seems unlikely to me that this spell was consistent with a generalized tonic-clonic seizure. He was kept upright and sometimes one can have jerking episodes with syncope when kept in an upright position. The cause of the syncope is not clear but certainly could have been hypotension or cardiac rhythm disturbance. He did not have all the stigmata of a vasovagal response or vasovagal reaction. I am relieved that his blood work and CT scan of his head was negative. RECOMMENDATIONS: I would consider a prolonged outpatient rhythm monitoring, perhaps with an event monitor for one month. Orthostatic blood pressures should be measured. I do feel that he needs further head imaging at this time nor do I feel an EEG would be that fruitful. If further episodes occur, we would be happy to reevaluate. LUANNE CUTLER MD DR: EDNA/laine JOB#: [id number] / [id number] Dr. VANDANA Jones FERILYN MD
[2018-12-20 03:16] VITALS: BP 122/90
[2018-12-20] MEDS: HYDROcodone/APAP 10/325 1 TAB TABLET PO PRN ×2 (03:35→13:25)
[2018-12-20 04:25] LABS: CALCIUM 8.6 mg/dL (8.5-10.1); CREATININE 0.9 mg/dL (0.7-1.3); POTASSIUM 3.6 mmol/L (3.5-5.1)
[2018-12-20 07:00] VITALS: BP 116/78
[2018-12-20] MEDS: ALBUTEROL SULFATE 2.5 MG/3 ML NEBU. NEB SCH ×3 (07:42→15:52)
[2018-12-20] MEDS: BUDESONIDE 0.5 MG/2 ML NEBU. NEB SCH (07:43)
[2018-12-20] MEDS ORDERED: ASPIRIN ENTERIC COATED 81 MG TABLET.DR. PO SCH (08:00)
[2018-12-20] MEDS: hydroCHLOROthiazide 25 MG TABLET PO SCH (08:49)
[2018-12-20] MEDS: PANTOPRAZOLE 40 MG TABLET.DR. PO SCH (08:49)
[2018-12-20] MEDS: metFORMIN 500 MG TABLET PO SCH (08:49)
[2018-12-20] MEDS: GLIMEPIRIDE 2 MG TABLET. PO SCH (08:50)
[2018-12-20] MEDS: LISINOPRIL 20 MG TABLET PO SCH (08:50)
[2018-12-20] MEDS ORDERED: amLODIPine BESYLATE 10 MG TABLET PO SCH (09:00)
[2018-12-20] MEDS ORDERED: ATORVASTATIN CALCIUM 40 MG TABLET. PO SCH (09:00)
[2018-12-20 11:00] VITALS: BP 134/81
[2018-12-20 14:07] VITALS: BP 129/80
--- NOTE | 2018-12-20 14:56 | CARD ---
MR#: [id number] Date of Study: 12/20/2018 Ordering Physician: JANELLE AMAYA, Referring Physician: COLTON MCDONALD, Tech: Maura Wilkes [place] APPROVED REPORT EXAM: Two-dimensional and M-mode echocardiogram with Doppler and color Doppler. Other Information Quality : Technically LimitedHR: 87bpm Rhythm : NSRTechnically limited study due to body habitus and COPD. INDICATION Syncope 2D DIMENSIONS RVDd4.1 (2.9-3.5cm)Left Atrium(2D)4.9 (1.6-4.0cm) IVSd1.2 (0.7-1.1cm)Aortic Root(2D)3.5 (2.0-3.7cm) LVDd4.3 (3.9-5.9cm)LVOT Diameter2.7 (1.8-2.4cm) PWd1.5 (0.7-1.1cm)LVDs2.8 (2.5-4.0cm) FS (%) 34.5 %SV52.8 ml M-Mode DIMENSIONS Left Atrium(MM)5.10 (2.5-4.0cm)Aortic Root3.59 (2.2-3.7cm) Aortic Valve AoV Peak Tomi.168.3cm/sAoV VTI27.7cm AO Peak GR.11.3mmHgLVOT Peak Tomi.142.6cm/s AO Mean GR.7mmHgAVA (VMAX)4.82cm2 SHAKIR (VTI)3.90cm2 Mitral Valve MV E Wyrciqts64.5cm/sMV E Peak Gr.5mmHg MV DECEL [id number] A Xluatswe520.3cm/s MV E Mean Gr.2mmHgE/A Ratio0.6 MV A [id number] Tricuspid Valve TR P. Tuqdmdtm099up/sRAP [id number] TR Peak Gr.74boNvYJOG50tfHy LEFT VENTRICLE The left ventricle is normal size. There is borderline concentric left ventricular hypertrophy. The l eft ventricular systolic function is normal and the ejection fraction is within normal range. The Eje ction Fraction is 60-65%. There is normal LV segmental wall motion. Transmitral Doppler flow pattern is Grade I-abnormal relaxation pattern. RIGHT VENTRICLE The right ventricle is normal size. The right ventricle is mildly hypertrophied. The right ventricula r systolic function is normal. ATRIA The left atrium size is normal. The right atrium size is normal. The interatrial septum is intact wit h no evidence for an atrial septal defect or patent foramen ovale as noted on 2-D or Doppler imaging. AORTIC VALVE The aortic valve is calcified but opens well. The aortic valve is not well visualized. Doppler and Co danika Flow revealed no significant aortic regurgitation. There is no significant aortic valvular stenos is. MITRAL VALVE The mitral valve is thickened but opens well. There is no evidence of mitral valve prolapse. There is no mitral valve stenosis. Doppler and Color-flow revealed trace mitral regurgitation. TRICUSPID VALVE The tricuspid valve is normal in structure and function. Doppler and Color Flow revealed trace tricus pid regurgitation. The PA pressure was estimated at 36 mmHg. There is no tricuspid valve prolapse or vegetation. There is no tricuspid valve stenosis. PULMONIC VALVE The pulmonic valve is not well visualized. GREAT VESSELS The aortic root is normal in size. The ascending aorta is normal in size. PERICARDIAL EFFUSION There is no evidence of significant pericardial effusion. Critical Notification Critical Value: No <Conclusion> The left ventricle is normal size. The left ventricular systolic function is normal and the ejection fraction is within normal range. The Ejection Fraction is 60-65%. There is borderline concentric left ventricular hypertrophy. There is no significant aortic valvular stenosis. Doppler and Color Flow revealed no significant aortic regurgitation. Doppler and Color-flow revealed trace mitral regurgitation. Doppler and Color Flow revealed trace tricuspid regurgitation. The PA pressure was estimated at 36 mmHg. Signed by : Janelle Amaya MD Electronically Approved : 12/20/2018 14:56:14
--- NOTE | 2018-12-20 15:10 | NUR ---
Received call from Dr Bundy. Echo looked good. Ok for discharge. Cardiology office will follow up with pt tomorrow re: Holter monitor. Will notify Dr Varela who is carbon electrodes supervisor for Dr Bledsoe.
--- NOTE | 2018-12-20 16:46 | NUR ---
Pt discharged to home to home with family. Reviewed discharge instructions. Pt verbalized understanding.
--- NOTE | 2018-12-20 17:18 | PDOC ---
PROGRESS NOTES Subjective Subjective Patient seen and examined He is feeling better. No dizziness overnight. Objective Objective Vital Signs Date Time Temp Pulse Resp B/P (MAP) Pulse Ox O2 Delivery O2 Flow Rate FiO2 12/20/18 15:52 92 Room Air 12/20/18 14:25 17 12/20/18 14:07 98.0 94 129/80 (96) 98.0 12/20/18 13:25 1.0 Intake and Output 12/20/18 07:00 Intake Total 980 ml Output Total 1200 ml Balance -220 ml Intake Oral 980 ml Output Urine Total 1200 ml # Voids 3 Physical Exam Abdomen: Normal bowel sounds Heart: Regular rate General: No acute distress Lungs: Clear to auscultation Assessment Assessment Problems Medical Problems: (1) Syncope Status: Acute 1. Syncopal episode. Events outlined as above. Rhythm has been stable overnight. Normal troponin. Echocardiogram shows normal LV systolic function and no significant valvular abnormalities. Neurology note as above. From a cardiac viewpoint the patient may be discharged. We'll contact tomorrow for outpatient monitoring and office follow-up. 2. Hypertension. Blood pressure is under reasonable control. 3. History of hyperlipidemia. Continue present treatment. 4. Diabetes mellitus. As per the primary service. Comment Review of Relevant I have reviewed the following items duane (where applicable) has been applied. Labs Laboratory Tests Test 12/19/18 05:00 12/20/18 03:20 White Blood Count 9.3 x10^3/uL (4.0-11.0) Red Blood Count 5.34 x10^6/uL (4.30-5.70) Hemoglobin 16.3 g/dL (13.0-17.5) Hematocrit 46.7 % (39.0-53.0) Mean Corpuscular Volume 88 fL (79-100) Mean Corpuscular Hemoglobin 30 pg (25-35) Mean Corpuscular Hemoglobin Concent 35 g/dL (31-37) Red Cell Distribution Width 13.7 % (11.5-14.5) Platelet Count 156 x10^3/uL (140-400) Neutrophils (%) (Auto) 73 % (31-73) Lymphocytes (%) (Auto) 18 % (24-48) Monocytes (%) (Auto) 6 % (0-9) Eosinophils (%) (Auto) 2 % (0-3) Basophils (%) (Auto) 0 % (0-3) Neutrophils # (Auto) 6.8 x10^3uL (1.8-7.7) Lymphocytes # (Auto) 1.7 x10^3/uL (1.0-4.8) Monocytes # (Auto) 0.6 x10^3/uL (0.0-1.1) Eosinophils # (Auto) 0.1 x10^3/uL (0.0-0.7) Basophils # (Auto) 0.0 x10^3/uL (0.0-0.2) Sodium Level 141 mmol/L (136-145) 138 mmol/L (136-145) Potassium Level 4.1 mmol/L (3.5-5.1) 3.6 mmol/L (3.5-5.1) Chloride Level 104 mmol/L (98-107) 100 mmol/L (98-107) Carbon Dioxide Level 29 mmol/L (21-32) 30 mmol/L (21-32) Anion Gap 8 (6-14) 8 (6-14) Blood Urea Nitrogen 15 mg/dL (8-26) 10 mg/dL (8-26) Creatinine 0.8 mg/dL (0.7-1.3) 0.9 mg/dL (0.7-1.3) Estimated GFR (Cockcroft-Gault) 99.6 87.0 BUN/Creatinine Ratio 19 (6-20) Glucose Level 162 mg/dL (70-99) 166 mg/dL (70-99) Calcium Level 8.5 mg/dL (8.5-10.1) 8.6 mg/dL (8.5-10.1) Total Bilirubin 0.8 mg/dL (0.2-1.0) Aspartate Amino Transf (AST/SGOT) 23 U/L (15-37) Alanine Aminotransferase (ALT/SGPT) 33 U/L (16-63) Alkaline Phosphatase 94 U/L (46-116) Total Protein 7.1 g/dL (6.4-8.2) Albumin 3.6 g/dL (3.4-5.0) Albumin/Globulin Ratio 1.0 (1.0-1.7) Magnesium Level 2.0 mg/dL (1.8-2.4) Laboratory Tests Test 12/20/18 03:20 Sodium Level 138 mmol/L (136-145) Potassium Level 3.6 mmol/L (3.5-5.1) Chloride Level 100 mmol/L (98-107) Carbon Dioxide Level 30 mmol/L (21-32) Anion Gap 8 (6-14) Blood Urea Nitrogen 10 mg/dL (8-26) Creatinine 0.9 mg/dL (0.7-1.3) Estimated GFR (Cockcroft-Gault) 87.0 Glucose Level 166 mg/dL (70-99) Calcium Level 8.6 mg/dL (8.5-10.1) Magnesium Level 2.0 mg/dL (1.8-2.4) Medications Current Medications Sodium Chloride 1,000 ml @ 1,000 mls/hr 1X ONCE IV ; Start 12/18/18 at 17:30; Stop 12/18/18 at 18:29; Status DC Ondansetron HCl (Zofran) 4 mg PRN Q8HRS PRN IV NAUSEA/VOMITING Last administered on 12/18/18at 18:10; Start 12/18/18 at 17:45; Stop 12/19/18 at 17:44 ; Status DC Morphine Sulfate (Morphine Sulfate) 2 mg PRN Q2HR PRN IV PAIN Last administered on 12/19/18at 00:38; Start 12/18/18 at 17:45; Stop 12/19/18 at 17:44 ; Status DC Sodium Chloride 1,000 ml @ 100 mls/hr Q10H IV Last administered on 12/18/18at 20:31; Start 12/18/18 at 17:37; Stop 12/18/18 at 21:36; Status DC Fentanyl Citrate (Fentanyl 2ml Vial) 50 mcg PRN Q30MIN PRN IV SEVERE PAIN; Start 12/18/18 at 18:00; Stop 12/20/18 at 16:50; Status DC Magnesium Sulfate 50 ml @ 10 mls/hr 1X ONCE IV Last administered on 12/18/18at 20:41; Start 12/18/18 at 18:45; Stop 12/18/18 at 23:44; Status DC Acetaminophen/ Hydrocodone Bitart (Lortab 7.5/325) 1 tab PRN Q6HRS PRN PO MILD PAIN Last administered on 12/19/18at 20:31; Start 12/18/18 at 20:00; Stop at 16:50; Status DC Albuterol Sulfate (Ventolin Neb Soln) 3 mg PRN Q6HRS PRN INH SHORTNESS OF BREATH; Start 12/19/18 at 09:30; Stop 12/20/18 at 16:50; Status DC Amlodipine Besylate (Norvasc) 10 mg DAILY PO Last administered on 12/20/18 08: 51; Start 12/20/18 at 09:00; Stop 12/20/18 at 16:50; Status DC Aspirin (Ecotrin) 81 mg DAILYWBKFT PO Last administered on 12/20/18 08:50; Start 12/20/18 at 08:00; Stop 12/20/18 at 16:50; Status DC Atorvastatin Calcium (Lipitor) 40 mg DAILY PO Last administered on 12/20/18 08 :49; Start 12/20/18 at 09:00; Stop 12/20/18 at 16:50; Status DC Acetaminophen/ Hydrocodone Bitart (Lortab 10/325) 1 tab PRN Q6HRS PRN PO MODERATE PAIN Last administered on 12/20/18 13:25; Start 12/19/18 at 09:30; Stop 12/20/18 at 16:50; Status DC Lisinopril (Prinivil) 20 mg BID PO Last administered on 12/20/18 08:50; Start 12/19/18 at 10:00; Stop 12/20/18 at 16:50; Status DC Non-Formulary Medication (Budesonide/ Formoterol Fumarate (Symbicort 160-4.5 Mcg Inhaler)) 1 puff BID IH ; Start 12/19/18 at 21:00; Stop 12/19/18 at 21:00; Status DC Glimepiride (Amaryl) 1 mg DAILY PO Last administered on 12/20/18 08:50; Start 12/19/18 at 10:00; Stop 12/20/18 at 16:50; Status DC Hydrochlorothiazide (Hydrodiuril) 25 mg DAILY PO Last administered on 08:49; Start 12/19/18 at 10:00; Stop 12/20/18 at 16:50; Status DC Metformin HCl (Glucophage) 1,000 mg BIDWMEALS PO Last administered on at 08:49; Start 12/19/18 at 17:00; Stop 12/20/18 at 16:50; Status DC Pantoprazole Sodium (Protonix) 40 mg DAILYAC PO Last administered on 12/20/18at 08:49; Start 12/19/18 at 10:00; Stop 12/20/18 at 16:50; Status DC Budesonide (Pulmicort) 0.5 mg RTBID NEB Last administered on 12/20/18at 07:43; Start 12/19/18 at 20:00; Stop 12/20/18 at 16:50; Status DC Albuterol Sulfate (Ventolin Neb Soln) 2.5 mg RTQID NEB Last administered on at 15:52; Start 12/19/18 at 12:00; Stop 12/20/18 at 16:50; Status DC Morphine Sulfate (Morphine Sulfate) 2 mg PRN Q2HR PRN IV MODERATE PAIN Last administered on 12/19/18at 18:14; Start 12/19/18 at 17:30; Stop 12/20/18 at 16:50 ; Status DC Active Scripts Active Atorvastatin Calcium 40 Mg Tablet 1 Tab PO DAILY 30 Days Aspirin Ec (Aspirin) 81 Mg Tablet.dr 81 Mg PO DAILYWBKFT 30 Days Prinivil (Lisinopril) 20 Mg Tablet 20 Mg PO BID Reported Proair Hfa Inhaler (Albuterol Sulfate) 8.5 Gm Hfa.aer.ad 1 Puff INH PRN Q6HRS PRN Symbicort 160-4.5 Mcg Inhaler (Budesonide/Formoterol Fumarate) 10.2 Gm Hfa.aer.ad 1 Puff IH BID Hydrocodone-Apap 10-325 (Hydrocodone Bit/Acetaminophen) 1 Tab Tablet 1 Tab PO PRN Q6HRS PRN Glimepiride 1 Mg Tablet 1 Tab PO DAILY Hydrochlorothiazide Tablet (Hydrochlorothiazide) 12.5 Mg Tablet 2 Tab PO DAILY Amlodipine Besylate 10 Mg Tablet 10 Mg PO DAILY Omeprazole 40 Mg Capsule.dr 40 Mg PO DAILY Metformin Hcl 500 Mg Tablet 1,000 Mg PO BIDWMEALS Vitals/I & O Vital Sign - Last 24 Hours 12/19/18 12/19/18 12/19/1812/19/19 18:14 18:44 19:45 19:58 Temp 98.2 98.2 Pulse 84 Resp 20 B/P (MAP) 121/79 (93) Pulse Ox 93 95 96 O2 Delivery Nasal Cannula BiPAP/CPAP Nasal Cannula BiPAP/CPAP O2 Flow Rate 3.0 3.0 12/19/18 12/19/18 12/19/18 12/19/18 20:00 20:03 20:30 20:31 Pulse 84 B/P (MAP) 121/79 Pulse Ox 97 O2 Delivery Bi-pap BiPAP/CPAP BiPAP/CPAP 12/19/18 12/19/18 12/19/18 12/20/18 21:31 23:35 23:48 03:16 Temp 98.0 97.8 98.0 97.8 Pulse 72 75 Resp 20 18 B/P (MAP) 135/90 (105) 122/90 (101) O2 Delivery BiPAP/CPAP BiPAP/CPAP Nasal Cannula Nasal Cannula O2 Flow Rate 3.0 3.0 12/20/18 12/20/18 12/20/18 12/20/18 03:35 04:35 07:00 07:44 Temp 97.8 97.8 Pulse 84 Resp 20 B/P (MAP) 116/78 (91) Pulse Ox 98 94 O2 Delivery Nasal Cannula Nasal Cannula Nasal Cannula O2 Flow Rate 3.0 3.0 3.0 3.0 12/20/18 12/20/18 12/20/18 12/20/18 08:00 08:50 08:51 11:00 Temp 98.0 98.0 Pulse 84 84 84 Resp 18 B/P (MAP) 116/78 116/78 134/81 (98) Pulse Ox 96 O2 Delivery Bi-pap Nasal Cannula O2 Flow Rate 3.0 3.0 12/20/18 12/20/18 12/20/18 12/20/18 11:30 11:39 12:00 13:25 Resp 18 Pulse Ox 94 93 95 O2 Delivery Nasal Cannula Nasal Cannula Nasal Cannula Nasal Cannula O2 Flow Rate 2.0 2.0 1.0 1.0 12/20/18 12/20/18 12/20/18 14:07 14:25 15:52 Temp 98.0 98.0 Pulse 94 Resp 18 17 B/P (MAP) 129/80 (96) Pulse Ox 94 92 O2 Delivery Room Air Room Air Room Air Intake and Output 12/19/18 12/19/18 12/20/18 15:00 23:00 07:00 Intake Total 480 ml 500 ml Output Total 400 ml 800 ml Balance 80 ml 500 ml -800 ml JANELLE AMAYA MD Dec 20, 2018 17:18
--- NOTE | 2018-12-20 20:00 | PN ---
DATE: 12/20/2018 LOCATION: He is in room 670. SUBJECTIVE: The patient is awake, alert. Denies any significant complaint at this point in time. OBJECTIVE: VITAL SIGNS: Stable. He is afebrile. He is on 3 liters per nasal cannula oxygen, did not use it at home. CHEST: Reveals essentially clear. HEART: Regular. ABDOMEN: Benign. Neurology has seen him and feels like this is mostly syncopal in nature and not seizure related. Cardiology has seen him and recommends an echo, which has not been done yet and may be having telemetry ongoing without any significant arrhythmias to date. IMPRESSION: 1. Syncope. 2. Diabetes. 3. Hyperlipidemia. 4. Hypertension. 5. Neuropathy. PLAN: Continue telemetry monitoring. Await echocardiogram. Further suggestions per Cardiology prior to considering discharge. QUINN PRESTON MD DR: JODI/laine JOB#: [id number] / [id number]
--- NOTE | 2018-12-22 10:00 | DS ---
DATE OF DISCHARGE: 12/20/2018 PRIMARY DIAGNOSES: Syncope with some possible associated seizure activity. ADDITIONAL DIAGNOSES: Diabetes, hyperlipidemia, hypertension, neuropathy. CHIEF COMPLAINT AND HISTORY OF PRESENT ILLNESS: This 58-year-old white male who purchased a minivan and left it at the bank parking lot. He was there with his to pick it up when he had a fall, which she braced at least partially going backwards and protected his head. He is sore over his tailbone after that. By history of , he was out for approximately 2 minutes, had some shaking activity, but no significant postictal sleepiness afterwards after Neurology talked to the . There was no loss of bowel or bladder or chewing up of his tongue with the same. Head CAT scanning of the Emergency Room was negative. Lumbar spine and sacrococcygeal films did not show acute fracture, and chest x-ray showed no acute abnormalities. Lab work was initially pretty unremarkable with blood sugars in the 150-200 range. SUMMARY OF STAY: The patient was admitted, monitored cardiologically with no significant arrhythmias. Echocardiogram was normal. Cardiology felt he could be dismissed, with them contacting him do an outpatient event monitor. Neurology felt this was more syncopal in nature and non-neurological and recommended no further workup. He thus was felt ready for discharge on the day of dismissal, and this was accomplished. DISPOSITION: The patient is discharged to home, regular ADA diet, activity as tolerated, office of Dr. Foster within the week. DISCHARGE MEDICATIONS: Listed on the med rec and have been addressed and again Cardiology will be contacting the patient for outpatient monitoring and office followup. QUINN PRESTON MD DR: JODI/laine JOB#: [id number] / [id number]
== END 2018-12-20 16:46 | disposition home or self-care (01) | DRG 101 ==
LOC: ER 16:33 → 6 SOUTH 17:40 → OBSVTOIN 12-19 11:59
PROVIDERS: ADMIT Family Medicine; ATTEND Family Medicine
PROC: 5A09357 Assistance with Respiratory Ventilation, Less than 24 Consecutive Hours, Continuous Positive Airway Pressure (ICD-10-PCS; principal; 2018-12-18)
PROC: 5A09357 Assistance with Respiratory Ventilation, Less than 24 Consecutive Hours, Continuous Positive Airway Pressure (ICD-10-PCS; 2018-12-19)
PROC: 5A09357 Assistance with Respiratory Ventilation, Less than 24 Consecutive Hours, Continuous Positive Airway Pressure (ICD-10-PCS; 2018-12-20)
DX: R56.9 Unspecified convulsions (principal); K21.9 Gastro-esophageal reflux disease without esophagitis; E78.00 Pure hypercholesterolemia, unspecified; I10 Essential (primary) hypertension; E11.40 Type 2 diabetes mellitus with diabetic neuropathy, unspecified; G89.29 Other chronic pain; M19.90 Unspecified osteoarthritis, unspecified site; E78.5 Hyperlipidemia, unspecified; J43.9 Emphysema, unspecified; F17.200 Nicotine dependence, unspecified, uncomplicated; Z96.659 Presence of unspecified artificial knee joint; W18.39XA Other fall on same level, initial encounter; Z90.49 Acquired absence of other specified parts of digestive tract; Z82.49 Family history of ischemic heart disease and other diseases of the circulatory system; Y93.89 Activity, other specified; Y92.89 Other specified places as the place of occurrence of the external cause; Y99.8 Other external cause status
CPT/HCPCS: 36415; 70450; 71045; 72100; 72220; 80048; 80053; 83735; 83880; 84484; 85025; 93005; 93306; 94640; 94660; 94760; 96374; 99407; G0378; G0379; J2270; J2405; J3475; J7030; J7613; J7626; 99285-25

== ENCOUNTER 2019-02-13 13:51 | Emergency (ER) | payer MEDICARE, OTHER ==
[~2019-02-13] VITALS: Ht 180.3 cm; Wt 113.9 kg
[~2019-02-13 13:51] MED LIST changes: +ALBU2.5V8 INH; +BUDE10.2 IH; +HYDR-2769 PO
[2019-02-13 13:55] VITALS: BP 155/80
[2019-02-13] MEDS ORDERED: HYDR25TA PO (14:36)
[2019-02-13] MEDS ORDERED: DOXY100C2 PO (14:36)
--- NOTE | 2019-02-13 14:36 | PHYS DOC ---
Past Medical History Past Medical History: COPD, Diabetes-Type II, GERD, High Cholesterol, Hyp ertension, Other Additional Past Medical Histor: Neuropathy,CHRONIC PAIN,EMPHYSEMA,TAILBONE FX Past Surgical History: Cholecystectomy, Knee Replacement, Other Additional Past Surgical Histo: neck surgery Alcohol Use: None Drug Use: None Adult General Chief Complaint Chief Complaint: INSECT BITE [facility] HPI Patient is a 58 year old male with history of diabetes mellitus who presents with complaining of tic bites. Patient complaining of 2 areas of tic bite in his right groin and left upper thigh for the last 2 days with erythema and pain in his concern for possible infection. Patient denies fever and chills and states he removed the tics completely from affected area. Patient is up-to-date with tetanus immunization. Review of Systems Review of Systems Constitutional: Denies fever or chills [] Eyes: Denies change in visual acuity, redness, or eye pain [] HENT: Denies nasal congestion or sore throat [] Respiratory: Denies cough or shortness of breath [] Cardiovascular: No additional information not addressed in HPI [] GI: Denies abdominal pain, nausea, vomiting, bloody stools or diarrhea [] : Denies dysuria or hematuria [] Musculoskeletal: Denies back pain or joint pain [] Integument: Denies rash, reports skin lesions [] Neurologic: Denies headache, focal weakness or sensory changes [] Endocrine: Denies polyuria or polydipsia [] All other systems were reviewed and found to be within normal limits, except as documented in this note. Allergies Allergies Allergies Coded Allergies Type Severity Reaction Last Updated Verified No Known Drug Allergies 12/16/14 No Physical Exam Physical Exam Constitutional: Well developed, well nourished, no acute distress, non-toxic appearance. [] HENT: Normocephalic, atraumatic Eyes: PERRLA, EOMI, conjunctiva normal, no discharge. [] Neck: Normal range of motion, no tenderness, supple, no stridor. [] Cardiovascular:Heart rate regular rhythm, no murmur [] Lungs & Thorax: Bilateral breath sounds clear to auscultation [] Skin: Warm, dry, no erythema, no rash. 5 x 5 cm area of erythema and mild erythema and central puncture wound of right inguinal area and left upper posterior thigh without sign of abscess or fluctuation with mild tenderness. [] Back: No tenderness, no CVA tenderness. [] Extremities: No tenderness, no cyanosis, no clubbing, ROM intact, no edema. [] Neurologic: Alert and oriented X 3, normal motor function, normal sensory function, no focal deficits noted. [] Psychologic: Affect normal, judgement normal, mood normal. [] Current Patient Data Vital Signs Vital Signs Date Time Temp Pulse Resp B/P (MAP) Pulse Ox O2 Delivery O2 Flow Rate FiO2 02/13/19 13:55 97.8 83 20 155/80 (105) 95 Nasal Cannula 3.0 97.8 EKG EKG [] Radiology/Procedures Radiology/Procedures [] Course & Med Decision Making Course & Med Decision Making Evaluation of patient in ER showed 58-year-old male patient with history of diabetes and complaining of 20 of right. Patient had erythema and cellulitis of affected area and prescription for hydroxyzine and doxycycline was given and was advised to follow-up with his primary care physician if not getting better. Dragon Disclaimer Dragon Disclaimer This electronic medical record was generated, in whole or in part, using a voice recognition dictation system. Departure Departure Impression: Primary Impression: Tick bite Additional Impression: Cellulitis Disposition: HOME, SELF-CARE (at 1432) Condition: STABLE Referrals: DIANNA LENNON MD (PCP) Patient Instructions: Cellulitis, Wood Tick Bite Additional Instructions: Follow-up with your primary care physician in 3-5 days Return to ER if not getting better Scripts Hydroxyzine Hcl (HYDROXYZINE HCL) 25 Mg Tablet 1 TAB PO TID PRN for itching, #30 TAB Prov: KAMINI OSORIO MD 02/13/19 Doxycycline Hyclate (DOXYCYCLINE HYCLATE) 100 Mg Capsule 1 CAP PO Q12HR, #14 CAP Prov: KAMINI OSORIO MD 02/13/19 Problem Qualifiers Primary Impression: Tick bite Encounter type: initial encounter Qualified Codes: W57.XXXA - Bitten or stung by nonvenomous insect and other nonvenomous arthropods, initial encounter Additional Impression: Cellulitis Site of cellulitis: buttock Qualified Codes: L03.317 - Cellulitis of buttock KAMINI OSORIO MD February 13, 2019 14:36
== END 2019-02-13 14:46 | disposition home or self-care (01) ==
LOC: ER 13:51
DX: S30.861A Insect bite (nonvenomous) of abdominal wall, initial encounter (principal); S70.362A Insect bite (nonvenomous), left thigh, initial encounter; L03.317 Cellulitis of buttock; K21.9 Gastro-esophageal reflux disease without esophagitis; J43.9 Emphysema, unspecified; E78.00 Pure hypercholesterolemia, unspecified; I10 Essential (primary) hypertension; E11.40 Type 2 diabetes mellitus with diabetic neuropathy, unspecified; G89.29 Other chronic pain; W57.XXXA Bitten or stung by nonvenomous insect and other nonvenomous arthropods, initial encounter; Y93.89 Activity, other specified; Y92.89 Other specified places as the place of occurrence of the external cause; Y99.8 Other external cause status
CPT/HCPCS: 99283

== ENCOUNTER 2019-06-11 19:35 | Inpatient (IN) | payer MEDICARE ==
[~2019-06-11] VITALS: Ht 180.3 cm; Wt 118.4 kg
[~2019-06-11 19:35] MED LIST changes: +DOXY100C2 PO; +HYDR25TA PO; -TIZA4TAB PO; +TIZA4TAB2 PO
[2019-06-11] MEDS ORDERED: IV NORMAL SALINE 1000ML BAG 1,000 ML IV SCH (20:05)
[2019-06-11] MEDS ORDERED: ONDANSETRON PF 4 MG/2 ML VIAL. IV ONE (20:15)
[2019-06-11 20:16] LABS: BASO # 0.1 x10^3/uL (0.0-0.2); BASO % 1 % (0-3); EOS # 0.3 x10^3/uL (0.0-0.7); EOS % 3 % (0-3); HEMOGLOBIN 12.9 g/dL (13.0-17.5); LYMPH % 22 % (24-48); MEAN CORPUSCULAR HEMOGLOBIN 30 pg (25-35); MEAN CORPUSCULAR HGB CONC 36 g/dL (31-37); MEAN CORPUSCULAR VOLUME 84 fL (79-100); MONO # 0.5 x10^3/uL (0.0-1.1); MONO % 5 % (0-9); NEUT # 6.5 x10^3/uL (1.8-7.7); NEUT % 70 % (31-73); PLATELET COUNT 230 x10^3/uL (140-400); RED BLOOD COUNT 4.28 x10^6/uL (4.30-5.70); RED CELL DISTRIBUTION WIDTH 13.9 % (11.5-14.5); WHITE BLOOD COUNT 9.4 x10^3/uL (4.0-11.0)
[2019-06-11 20:18] LABS: BILIRUBIN,URINE NEGATIVE (NEG); CLARITY,URINE CLEAR; COLOR,URINE YELLOW; NITRITE,URINE NEGATIVE (NEG); PROTEIN,URINE NEGATIVE (NEG-TRACE); UROBILINOGEN,URINE 0.2 mg/dL (0.2 mg/dL)
--- NOTE | 2019-06-11 20:22 | PHYS DOC ---
Past Medical History Past Medical History: COPD, Diabetes-Type II, GERD, High Cholesterol, Hypertension, Other Additional Past Medical Histor: Neuropathy,CHRONIC PAIN,EMPHYSEMA,TAILBONE FX Past Surgical History: Cholecystectomy, Knee Replacement, Other Additional Past Surgical Histo: neck surgery,left testicle hydrocele repair Alcohol Use: None Drug Use: None Adult General Chief Complaint Chief Complaint: POST-OP PROBLEM HPI HPI Patient is a 58-year-old male who presents with report of drainage from surgical site and redness to his scrotum. Patient had surgery for hydrocele about 3-1/2 weeks ago and wound had been healing well without drainage for some time but then today he noticed bleeding and some greenish yellowish purulent drainage from surgical wound throughout the day. He also indicates that scrotum has gotten more red and warm over the last 24 hours. He does rate pain as moderate which has also worsened over the last 24 hours. He denies any fever. He also denies any chest pain or shortness breath. He denies any nausea, vomiting or diarrhea. Patient is a diabetic and states that his blood sugars have been running in the 160-170 range.[] Review of Systems Review of Systems Constitutional: Denies fever or chills [] Respiratory: Denies cough or shortness of breath [] Cardiovascular: No additional information not addressed in HPI [] GI: Denies abdominal pain, nausea, vomiting or diarrhea [] : Denies dysuria or hematuria. Complains of swelling and redness to scrotum along with purulent drainage from surgical wound. [] Neurologic: Denies headache, focal weakness or sensory changes [] All other systems were reviewed and found to be within normal limits, except as documented in this note. Current Medications Current Medications Current Medications Medications (Trade) Dose Ordered Sig/Eile Start Time Stop Time Status Last Admin Dose Admin Fentanyl Citrate (Fentanyl 2ml Vial) 50 mcg PRN Q15MIN PRN 06/11/19 20:15 06/12/19 20:14 06/12/19 01:10 50 MCG Info (CONTRAST GIVEN -- Rx MONITORING) 1 each PRN DAILY PRN 06/11/19 21:45 06/13/19 21:44 Iohexol (Omnipaque 300 Mg/ml) 75 ml 1X ONCE 06/11/19 22:00 06/11/19 22:01 DC Ondansetron HCl (Zofran) 4 mg 1X ONCE 06/11/19 20:15 06/11/19 20:16 DC 06/11/19 20:33 4 MG Sodium Chloride 1,000 ml @ 1,000 mls/hr Q1H 06/11/19 20:05 06/11/19 21:04 DC 06/11/19 20:33 1,000 MLS/HR Vancomycin HCl 250 ml @ 250 mls/hr 1X ONCE 06/11/19 22:15 06/11/19 23:14 UNV Allergies Allergies Allergies Coded Allergies Type Severity Reaction Last Updated Verified No Known Drug Allergies 12/16/14 No Physical Exam Physical Exam Constitutional: Well developed, well nourished, no acute distress, non-toxic appearance. [] HENT: Normocephalic, atraumatic, bilateral external ears normal, oropharynx m oist, no oral exudates, nose normal. [] Eyes: PERRLA, EOMI, conjunctiva normal, no discharge. [] Neck: Normal range of motion, no tenderness, supple, no stridor. [] Cardiovascular: Regular rate and rhythm[] Lungs & Thorax: Bilateral breath sounds clear to auscultation [] Abdomen: Bowel sounds normal, soft, no tenderness. [] Skin: Warm, dry, no erythema, no rash. [] : Examination of scrotum demonstrates warmth, erythema and induration with sca nt amount of drainage from surgical wound. [] Extremities: No tenderness, no cyanosis, no clubbing, ROM intact. [] Neurologic: Alert and oriented X 3, no focal deficits noted. [] Current Patient Data Vital Signs Vital Signs Date Time Temp Pulse Resp B/P (MAP) Pulse Ox O2 Delivery O2 Flow Rate FiO2 06/11/19 22:08 80 14 126/76 (93) 91 Room Air 06/11/19 19:35 98.0 98.0 Lab Values Laboratory Tests Test 06/11/19 19:47 06/11/19 20:05 Urine Collection Type Unknown Urine Color Yellow Urine Clarity Clear Urine pH 6.0 Urine Specific [place] <=1.005 Urine Protein Negative mg/dL (NEG-TRACE) Urine Glucose (UA) Negative mg/dL (NEG) Urine Ketones (Stick) Negative mg/dL (NEG) Urine Blood Negative (NEG) Urine Nitrite Negative (NEG) Urine Bilirubin Negative (NEG) Urine Urobilinogen Dipstick 0.2 mg/dL (0.2 mg/dL) Urine Leukocyte Esterase Negative (NEG) Urine RBC 0 /HPF (0-2) Urine WBC 0 /HPF (0-4) Urine Squamous Epithelial Cells Occ /LPF Urine Bacteria 0 /HPF (0-FEW) White Blood Count 9.4 x10^3/uL (4.0-11.0) Red Blood Count 4.28 x10^6/uL (4.30-5.70) L Hemoglobin 12.9 g/dL (13.0-17.5) L Hematocrit 36.0 % (39.0-53.0) L Mean Corpuscular Volume 84 fL (79-100) Mean Corpuscular Hemoglobin 30 pg (25-35) Mean Corpuscular Hemoglobin Concent 36 g/dL (31-37) Red Cell Distribution Width 13.9 % (11.5-14.5) Platelet Count 230 x10^3/uL (140-400) Neutrophils (%) (Auto) 70 % (31-73) Lymphocytes (%) (Auto) 22 % (24-48) L Monocytes (%) (Auto) 5 % (0-9) Eosinophils (%) (Auto) 3 % (0-3) Basophils (%) (Auto) 1 % (0-3) Neutrophils # (Auto) 6.5 x10^3/uL (1.8-7.7) Lymphocytes # (Auto) 2.0 x10^3/uL (1.0-4.8) Monocytes # (Auto) 0.5 x10^3/uL (0.0-1.1) Eosinophils # (Auto) 0.3 x10^3/uL (0.0-0.7) Basophils # (Auto) 0.1 x10^3/uL (0.0-0.2) Sodium Level 139 mmol/L (136-145) Potassium Level 3.6 mmol/L (3.5-5.1) Chloride Level 99 mmol/L (98-107) Carbon Dioxide Level 30 mmol/L (21-32) Anion Gap 10 (6-14) Blood Urea Nitrogen 11 mg/dL (8-26) Creatinine 1.1 mg/dL (0.7-1.3) Estimated GFR (Cockcroft-Gault) 69.0 BUN/Creatinine Ratio 10 (6-20) Glucose Level 181 mg/dL (70-99) H Calcium Level 9.3 mg/dL (8.5-10.1) Total Bilirubin 0.6 mg/dL (0.2-1.0) Aspartate Amino Transferase (AST) 18 U/L (15-37) Alanine Aminotransferase (ALT) 34 U/L (16-63) Alkaline Phosphatase 128 U/L (46-116) H Total Protein 8.0 g/dL (6.4-8.2) Albumin 3.8 g/dL (3.4-5.0) Albumin/Globulin Ratio 0.9 (1.0-1.7) L Laboratory Tests 06/11/19 20:05 Laboratory Tests 06/11/19 20:05 EKG EKG [] Radiology/Procedures Radiology/Procedures [] Impressions: PROCEDURE: CT PELVIS W/CONTRAST Exam: CT pelvis with contrast INDICATION: Postop infection of scrotum TECHNIQUE: Sequential axial images through the pelvis obtained following the administration of 75 mL of Omni 300 IV contrast. Sagittal and coronal reformatted images were reconstructed from the axial data and reviewed. Comparisons: CT 05/27/2019 FINDINGS: Visualized portions of the large and small bowel are unremarkable. Appendix is normal. No free intra-abdominal air or fluid within the [id number]. Bladder is distended. Prostate is not enlarged. Visualized pelvic vasculature is patent. No pelvic lymphadenopathy. There is scrotal edema and a moderate-sized left hydrocele. No soft tissue gas at the scrotum or perineum is noted. No suspicious osseous lesions or acute fractures. IMPRESSION: Scrotal edema which is decreased when compared to the CT on 05/27/2019. There is a persistent moderate-sized left hydrocele. No soft tissue gas in the scrotum or perineum to suggest fasciitis. No focal fluid collection to suggest abscess. Exposure: One or more of the following in the visualized dose reduction techniques were utilized for this examination: 1. Automated exposure control 2. Adjustment of the MA and/or KV according to patient size 3. Use of iterative of reconstructive technique Electronically signed by: Louisa Dominguez MD (06/11/2019 9:49 PM) [facility] Course & Med Decision Making Course & Med Decision Making Pertinent Labs and Imaging studies reviewed. (See chart for details) [] Dragon Disclaimer Dragon Disclaimer This electronic medical record was generated, in whole or in part, using a voice recognition dictation system. Departure Departure Impression: Primary Impression: Postoperative infection Additional Impression: Cellulitis of scrotum Disposition: ADMITTED INPATIENT Admitting Physician: Dianna Foster Condition: IMPROVED Referrals: DIANNA FOSTER MD (PCP) Problem Qualifiers Primary Impression: Postoperative infection Encounter type: initial encounter Postoperative infection type: unspecified type Qualified Codes: T81.40XA - Infection following a procedure, unspecified, initial encounter LILLY CONTI Jr. DO Jun 11, 2019 20:22
[2019-06-11 20:25] LABS: BACTERIA,URINE 0 /HPF (0-FEW); RBC,URINE 0 /HPF (0-2); SQUAMOUS EPITHELIAL CELL,UR OCC /LPF; WBC,URINE 0 /HPF (0-4)
[2019-06-11 20:32] LABS: CALCIUM 9.3 mg/dL (8.5-10.1); CREATININE 1.1 mg/dL (0.7-1.3); POTASSIUM 3.6 mmol/L (3.5-5.1)
[2019-06-11] MEDS: fentaNYL PF VIAL 100 MCG/2 ML VIAL IV PRN (20:33)
[2019-06-11 20:38] LABS: ALBUMIN 3.8 g/dL (3.4-5.0); ALBUMIN/GLOBULIN RATIO 0.9 (1.0-1.7); TOTAL BILIRUBIN 0.6 mg/dL (0.2-1.0)
[2019-06-11] MEDS ORDERED: CONTRAST GIVEN. MC PRN (21:45)
--- NOTE | 2019-06-11 21:52 | RAD ---
Exam: CT pelvis with contrast INDICATION: Postop infection of scrotum TECHNIQUE: Sequential axial images through the pelvis obtained following the administration of 75 mL of Omni 300 IV contrast. Sagittal and coronal reformatted images were reconstructed from the axial data and reviewed. Comparisons: CT 05/27/2019 FINDINGS: Visualized portions of the large and small bowel are unremarkable. Appendix is normal. No free intra-abdominal air or fluid within the [id number]. Bladder is distended. Prostate is not enlarged. Visualized pelvic vasculature is patent. No pelvic lymphadenopathy. There is scrotal edema and a moderate-sized left hydrocele. No soft tissue gas at the scrotum or perineum is noted. No suspicious osseous lesions or acute fractures. IMPRESSION: Scrotal edema which is decreased when compared to the CT on 05/27/2019. There is a persistent moderate-sized left hydrocele. No soft tissue gas in the scrotum or perineum to suggest fasciitis. No focal fluid collection to suggest abscess. Exposure: One or more of the following in the visualized dose reduction techniques were utilized for this examination: 1. Automated exposure control 2. Adjustment of the MA and/or KV according to patient size 3. Use of iterative of reconstructive technique Electronically signed by: Louisa Dominguez MD (06/11/2019 9:49 PM) [facility]
[2019-06-11] MEDS ORDERED: IOHEXOL 300 MG/ML 100ML VIAL. IV ONE (22:00)
[2019-06-11] MEDS ORDERED: VANCOMYCIN 1GM IVPB FOR OMNI 250 ML IV ONE (22:15)
[2019-06-11] MEDS ORDERED: ONDANSETRON PF 4 MG/2 ML VIAL. IV PRN (22:30)
[2019-06-11] MEDS ORDERED: ACETAMINOPHEN 325 MG TABLET. PO PRN (22:30)
[2019-06-11] MEDS ORDERED: VANCOMYCIN PER PHARMACY MC PRN (22:30)
[2019-06-11] MEDS ORDERED: PIPERACILLIN/TAZOBACTAM 3.375 GM in IV NORMAL SALINE 50ML 50 ML IV ONE (22:30)
[2019-06-11] MEDS ORDERED: fentaNYL PF VIAL 100 MCG/2 ML VIAL IV PRN (22:30)
[2019-06-11] MEDS ORDERED: VANCOMYCIN 2 GM in IV NORMAL SALINE 500ML BAG 500 ML IV ONE (23:00)
[2019-06-12] VITALS (7 sets, daily range): BP systolic 118–128; BP diastolic 73–85
--- NOTE | 2019-06-12 00:12 | NUR ---
The patient, ADOLFO TAM, 58 y/o, M admitted by DIANNA LENNON MD, was given written information regarding hospital policies, unit procedures and contact persons. Patient admitted to room 438. Patient alert and oriented x 4. Patient oriented to room, bed, call light and plan of care. HIPPA code given to Patient's per patient request. See admission assessment/documentation. Valuables were checked and ring , cell phone and electronic data interchange specialist, shoes and clothing kept with Patient, wallet sent home with his .
[2019-06-12] MEDS: fentaNYL PF VIAL 100 MCG/2 ML VIAL IV PRN (01:10)
[2019-06-12] MEDS ORDERED: SPIR25TA5 PO (02:05)
[2019-06-12 04:21] LABS: BASO % 1 % (0-3); EOS # 0.3 x10^3/uL (0.0-0.7); EOS % 4 % (0-3); HEMATOCRIT 33.9 % (39.0-53.0); HEMOGLOBIN 11.9 g/dL (13.0-17.5); LYMPH # 2.1 x10^3/uL (1.0-4.8); LYMPH % 25 % (24-48); MEAN CORPUSCULAR HEMOGLOBIN 30 pg (25-35); MEAN CORPUSCULAR HGB CONC 35 g/dL (31-37); MEAN CORPUSCULAR VOLUME 85 fL (79-100); MONO # 0.6 x10^3/uL (0.0-1.1); MONO % 7 % (0-9); NEUT # 5.4 x10^3/uL (1.8-7.7); NEUT % 64 % (31-73); PLATELET COUNT 211 x10^3/uL (140-400); RED CELL DISTRIBUTION WIDTH 14.2 % (11.5-14.5); WHITE BLOOD COUNT 8.5 x10^3/uL (4.0-11.0)
[2019-06-12 04:38] LABS: CALCIUM 8.9 mg/dL (8.5-10.1); CREATININE 1.1 mg/dL (0.7-1.3); POTASSIUM 3.8 mmol/L (3.5-5.1)
[2019-06-12 07:59] LABS: % ATYL 1 % (0-0); % BANDS 3 % (0-9); % EOS 6 % (0-5); % LYMPHS 19 % (24-48); % METAS 1 % (0-0); % MONOS 7 % (0-10); % MYELOS 2 % (0-0); % SEGS 61 % (35-66); PLT ESTIMATE ADEQUATE (ADEQUATE)
[2019-06-12 08:00] LABS: ANISOCYTOSIS SLIGHT; POLYCHROMASIA PRESENT
[2019-06-12] MEDS ORDERED: ALBUTEROL SULFATE 2.5 MG/3 ML NEBU. INH PRN (09:45)
--- NOTE | 2019-06-12 10:03 | NUR ---
Pharmacy Vancomycin Dosing Note S:Consulted to monitor and dose vancomycin started 06/11/19. O:ADOLFO TAM is a 58 year old M with cellulitis. Height: 6 feet, 3 inches Weight: 118.4 kg Dosing Weight: Actual Other Antibiotics: N/A LABS: Last BUN: 9 Last Creatinine: 1.1 Creatinine Clearance: >100 mL/min Last WBC: 8.5 Tmax (past 24 hours): 98.2 Microbiology: BLOOD AND WOUND CX IN PROCESS I/O: 1000/1 void A: Patient requires vancomycin for scrotal cellulitis, goal trough 10-20 mcg/ml. Patient's SCr is 1.1 with an eCrCl of > 100 ml/min. He received vancomycin 2000 mg IV x 1 dose in ER last evening. Initiate the following: P: 1. Initiate Vancomycin 1750 mg IV q12h 2. Follow up Trough level on 06/13/19 at 1030 3. Pharmacy will continue to monitor, follow and adjust therapy as needed. [facility], 06/12/19 1003
[2019-06-12] MEDS: hydroCHLOROthiazide 25 MG TABLET PO SCH (10:17)
[2019-06-12] MEDS: GLIMEPIRIDE 2 MG TABLET. PO SCH (10:18)
[2019-06-12] MEDS: SPIRONOLACTONE 25 MG TABLET PO SCH (10:18)
[2019-06-12] MEDS: HYDROcodone/APAP 10/325 1 TAB TABLET PO PRN ×2 (10:18→16:37)
[2019-06-12] MEDS: LISINOPRIL 20 MG TABLET PO SCH ×2 (10:18→20:47)
[2019-06-12] MEDS ORDERED: VANCOMYCIN 1.75 GM in IV NORMAL SALINE 500ML BAG 500 ML IV SCH (11:00)
[2019-06-12] MEDS: ALBUTEROL SULFATE 2.5 MG/3 ML NEBU. NEB SCH ×3 (11:17→18:08)
[2019-06-12] MEDS: BUDESONIDE 0.5 MG/2 ML NEBU. NEB SCH ×2 (11:17→18:08)
--- NOTE | 2019-06-12 13:05 | PDOC ---
Infectious Disease Note Subjective: Subjective Pt well known to our team from recent admission See Last ID consult for details See last ID note for details HPI 58-year-old male with recent surgery for hydrocele about 3-1/2 weeks ago and wound had been healing well without drainage .He recently completed oral antibiotics from last discharge on 06/08 but then today he noticed bleeding and some greenish yellowish purulent drainage from surgical wound with pain. He also indicates that scrotum has gotten more red and warm over the last 24 hours. So he presented to the hosp. He is on IV Vanc Recieved one dose of IV Zosyn in ED.He denies any fever/chills/nausea/vomiting/sob/diarrhea/rash. Pelvic CT this admission Scrotal edema which is decreased when compared to the CT on 05/27/2019. There is a persistent moderate-sized left hydrocele. No soft tissue gas in the scrotum or perineum to suggest fasciitis. No focal fluid collection to suggest abscess. ROS: ROS Constitutional: Denies fever or chills Respiratory: Denies cough or shortness of breath Cardiovascular: negative GI: Denies abdominal pain, nausea, vomiting or diarrhea : as above Neurologic: Denies headache, focal weakness or sensory changes All other systems were reviewed and found to be within normal limits, except as documented in this note. Vital Signs: Vital Signs Vital Signs Date Time Temp Pulse Resp B/P (MAP) Pulse Ox O2 Delivery O2 Flow Rate FiO2 06/12/19 12:35 20 Room Air 06/12/19 11:18 96 06/12/19 10:48 97.8 80 128/85 (99) 97.8 Physical Exam: PHYSICAL EXAM GENERAL: Propped up in bed, alert, NAD HEENT: Oral cavity, pharynx is clear.Anicteric, no thrush NECK: Supple LUNGS: Clear to auscultation HEART: S1, S2. ABDOMEN: Morbidly obese, soft, no guarding, no rebound. Positive bowel sounds. Scrotal edema , erythema, tenderness, Lt more than Rt side, incision is intact, EXTREMITIES: No clubbing, cyanosis or gross edema. NEUROLOGIC: Alert, responds appropriately Medications: Inpatient Meds: Current Medications Medications (Trade) Dose Ordered Sig/Elie Start Time Stop Time Status Last Admin Dose Admin Acetaminophen (Tylenol) 650 mg PRN Q4HRS PRN 06/11/19 22:30 06/12/19 22:29 Acetaminophen/ Hydrocodone Bitart (Lortab 10/325) 1 tab PRN Q6HRS PRN 06/12/19 09:45 06/12/19 10:18 1 TAB Albuterol Sulfate (Ventolin Neb Soln) 2.5 mg RTQID 06/12/19 12:00 06/12/19 11:17 2.5 MG Amlodipine Besylate (Norvasc) 10 mg DAILY 06/13/19 09:00 Atorvastatin Calcium (Lipitor) 40 mg QHS 06/13/19 21:00 Budesonide (Pulmicort) 0.5 mg RTBID 06/12/19 12:00 06/12/19 11:17 0.5 MG Fentanyl Citrate (Fentanyl 2ml Vial) 50 mcg PRN Q1HR PRN 06/11/19 22:30 06/12/19 22:29 06/12/19 08:16 50 MCG Glimepiride (Amaryl) 2 mg DAILY 06/12/19 10:30 06/12/19 10:18 2 MG Hydrochlorothiazide (Hydrodiuril) 25 mg DAILY 06/12/19 10:30 06/12/19 10:18 25 MG Info (CONTRAST GIVEN -- Rx MONITORING) 1 each PRN DAILY PRN 06/11/19 21:45 06/13/19 21:44 Iohexol (Omnipaque 300 Mg/ml) 75 ml 1X ONCE 06/11/19 22:00 06/11/19 22:01 DC Lisinopril (Prinivil) 20 mg BID 06/12/19 10:30 06/12/19 10:18 20 MG Non-Formulary Medication (Budesonide/ Formoterol Fumarate (Symbicort 160-4.5 Mcg Inhaler)) 1 puff BID 06/12/19 21:00 UNV Ondansetron HCl (Zofran) 4 mg PRN Q8HRS PRN 06/11/19 22:30 06/12/19 22:29 Piperacillin Sod/ Tazobactam Sod 3.375 gm/Sodium Chloride 50 ml @ 100 mls/hr 1X ONCE 06/11/19 22:30 06/11/19 22:59 DC 06/11/19 22:31 100 MLS/HR Sodium Chloride 1,000 ml @ 1,000 mls/hr Q1H 06/11/19 20:05 06/11/19 21:04 DC 06/11/19 20:33 1,000 MLS/HR Spironolactone (Aldactone) 25 mg DAILY 06/12/19 10:30 06/12/19 10:18 25 MG Vancomycin HCl (Vanco Per Pharmacy) 1 each PRN DAILY PRN 06/11/19 22:30 06/12/19 10:03 1 EACH Vancomycin HCl (Vancomycin Trough Level) 1 each 1X ONCE 06/13/19 10:30 06/13/19 10:31 Vancomycin HCl 1.75 gm/Sodium Chloride 500 ml @ 250 mls/hr Q12H 06/12/19 11:00 Vancomycin HCl 2 gm/Sodium Chloride 500 ml @ 250 mls/hr 1X ONCE 06/11/19 23:00 06/12/19 00:59 DC 06/11/19 22:31 250 MLS/HR Labs: Lab Laboratory Tests Test 06/11/19 19:47 06/11/19 20:05 06/12/19 04:05 06/12/19 08:02 Urine Collection Type Unknown Urine Color Yellow Urine Clarity Clear Urine pH 6.0 Urine Specific [place] <=1.005 Urine Protein Negative mg/dL (NEG-TRACE) Urine Glucose (UA) Negative mg/dL (NEG) Urine Ketones (Stick) Negative mg/dL (NEG) Urine Blood Negative (NEG) Urine Nitrite Negative (NEG) Urine Bilirubin Negative (NEG) Urine Urobilinogen Dipstick 0.2 mg/dL (0.2 mg/dL) Urine Leukocyte Esterase Negative (NEG) Urine RBC 0 /HPF (0-2) Urine WBC 0 /HPF (0-4) Urine Squamous Epithelial Cells Occ /LPF Urine Bacteria 0 /HPF (0-FEW) White Blood Count 9.4 x10^3/uL (4.0-11.0) 8.5 x10^3/uL (4.0-11.0) Red Blood Count 4.28 x10^6/uL (4.30-5.70) 4.00 x10^6/uL (4.30-5.70) Hemoglobin 12.9 g/dL (13.0-17.5) 11.9 g/dL (13.0-17.5) Hematocrit 36.0 % (39.0-53.0) 33.9 % (39.0-53.0) Mean Corpuscular Volume 84 fL (79-100) 85 fL (79-100) Mean Corpuscular Hemoglobin 30 pg (25-35) 30 pg (25-35) Mean Corpuscular Hemoglobin Concent 36 g/dL (31-37) 35 g/dL (31-37) Red Cell Distribution Width 13.9 % (11.5-14.5) 14.2 % (11.5-14.5) Platelet Count 230 x10^3/uL (140-400) 211 x10^3/uL (140-400) Neutrophils (%) (Auto) 70 % (31-73) 64 % (31-73) Lymphocytes (%) (Auto) 22 % (24-48) 25 % (24-48) Monocytes (%) (Auto) 5 % (0-9) 7 % (0-9) Eosinophils (%) (Auto) 3 % (0-3) 4 % (0-3) Basophils (%) (Auto) 1 % (0-3) 1 % (0-3) Neutrophils # (Auto) 6.5 x10^3/uL (1.8-7.7) 5.4 x10^3/uL (1.8-7.7) Lymphocytes # (Auto) 2.0 x10^3/uL (1.0-4.8) 2.1 x10^3/uL (1.0-4.8) Monocytes # (Auto) 0.5 x10^3/uL (0.0-1.1) 0.6 x10^3/uL (0.0-1.1) Eosinophils # (Auto) 0.3 x10^3/uL (0.0-0.7) 0.3 x10^3/uL (0.0-0.7) Basophils # (Auto) 0.1 x10^3/uL (0.0-0.2) 0.0 x10^3/uL (0.0-0.2) Sodium Level 139 mmol/L (136-145) 141 mmol/L (136-145) Potassium Level 3.6 mmol/L (3.5-5.1) 3.8 mmol/L (3.5-5.1) Chloride Level 99 mmol/L (98-107) 103 mmol/L (98-107) Carbon Dioxide Level 30 mmol/L (21-32) 30 mmol/L (21-32) Anion Gap 10 (6-14) 8 (6-14) Blood Urea Nitrogen 11 mg/dL (8-26) 9 mg/dL (8-26) Creatinine 1.1 mg/dL (0.7-1.3) 1.1 mg/dL (0.7-1.3) Estimated GFR (Cockcroft-Gault) 69.0 69.0 BUN/Creatinine Ratio 10 (6-20) Glucose Level 181 mg/dL (70-99) 135 mg/dL (70-99) Calcium Level 9.3 mg/dL (8.5-10.1) 8.9 mg/dL (8.5-10.1) Total Bilirubin 0.6 mg/dL (0.2-1.0) Aspartate Amino Transf (AST/SGOT) 18 U/L (15-37) Alanine Aminotransferase (ALT/SGPT) 34 U/L (16-63) Alkaline Phosphatase 128 U/L (46-116) Total Protein 8.0 g/dL (6.4-8.2) Albumin 3.8 g/dL (3.4-5.0) Albumin/Globulin Ratio 0.9 (1.0-1.7) Segmented Neutrophils % 61 % (35-66) Band Neutrophils % 3 % (0-9) Lymphocytes % 19 % (24-48) Atypical Lymphocytes % (Manual) 1 % (0-0) Monocytes % 7 % (0-10) Eosinophils % 6 % (0-5) Metamyelocytes % 1 % (0-0) Myelocytes % 2 % (0-0) Platelet Estimate Adequate (ADEQUATE) Polychromasia Present Anisocytosis Slight Glucose (Fingerstick) 130 mg/dL (70-99) Test 06/12/19 11:54 Glucose (Fingerstick) 149 mg/dL (70-99) Objective: Assessment: Scrotal cellulitis with recurrence s/p recent hydrocoele surgery 3/12 weeks ago Hydrocoele Leukocytosis. Acute kidney injury. Yeast. Diabetes. Plan: Plan of Care Start Zyvox, DC IV Vanc cont zosyn start fluconazole Probiotics f/u labs and cults cont supportive care urology consulted D/W ELANA GR MD Jun 12, 2019 13:05
[2019-06-12] MEDS: FLUCONAZOLE 100 MG TABLET. PO SCH (14:12)
[2019-06-12] MEDS: PIPERACILLIN/TAZOBACTAM 3.375 GM in IV NORMAL SALINE 50ML 50 ML IV SCH ×2 (14:12→18:18)
[2019-06-12] MEDS: LINEZOLID 600 MG TABLET PO SCH ×2 (14:12→20:47)
--- NOTE | 2019-06-12 14:33 | HP ---
ADMIT DATE: 06/11/2019 ADMISSION HISTORY AND PHYSICAL CHIEF COMPLAINT AND HISTORY OF PRESENT ILLNESS: This 58-year-old white male, patient of Dr. Paul Foster's, presented to the Emergency Room with drainage from the surgical site and redness to his scrotum after recent hydrocele repair. The patient had this done about 3-1/2 weeks ago at the [facility]. He has been hospitalized here since and I saw him a couple of weekends ago on-call for Dr. Foster with cellulitis. The patient had greenish yellow bloody drainage from the surgical wound throughout the day and that the scrotum has gotten more warm and swollen over the last 24 hours. He rated the pain as at least moderate and worsening. He was readmitted for the same. The patient denied any marked increase in blood sugars associated with this. PAST MEDICAL HISTORY: Remarkable for type 2 diabetes, GERD, COPD, hyperlipidemia, hypertension, neuropathy, prior tailbone fracture. PAST SURGICAL HISTORY: Includes cholecystectomy, knee replacement, neck surgery and left testicle hydrocele repair. MEDICATIONS: Brought with the patient, listed on the computer and have been addressed. ALLERGIES: He has no known drug allergies. SOCIAL HISTORY: Noncontributory. FAMILY HISTORY: Noncontributory. REVIEW OF SYSTEMS: As mentioned above. PHYSICAL EXAMINATION: GENERAL: He is a well-developed, well-nourished white male in no acute distress in bed. VITAL SIGNS: Stable. He is afebrile. HEAD, EYES, EARS, NOSE AND THROAT: Unremarkable. NECK: Supple, no lymphadenopathy or thyromegaly. CHEST: Clear to auscultation and percussion. HEART: Regular rate and rhythm without S3, S4 or murmur. ABDOMEN: Soft, nontender, without hepatosplenomegaly or masses. EXTREMITIES: Without cyanosis, clubbing, and significant edema. NEUROLOGIC: Intact. Scrotal exam does reveal warmth, redness, induration of the scrotum, although the swelling is much less than it was 2-1/2 week to 2 weeks ago when he was here. He does have a small amount of drainage from it and it does appear to be cellulitic in nature and by his story worsening as opposed to improving. LABORATORY DATA: Includes white count of 9400 with a normal differential. Chemistries other than blood sugar 180 are essentially unremarkable. Urine likewise unremarkable. IMPRESSION: 1. Status post hydrocele repair with scrotal cellulitis. 2. Multiple other problems listed above. PLAN: The patient has been admitted. Antibiotics will be directed by ID. I am going ask Urology to see him once again and the patient will be monitored, managed and treated appropriately. QUINN PRESTON MD DR: JODI/laine JOB#: [id number] / [id number]
--- NOTE | 2019-06-12 16:24 | PDOC2 ---
UROLOGY CONSULT Date of Admission DATE: 06/12/19 TIME: 16:18 known left scrotal hematoma after left hydrocelectomy at [place]. Admitted very recently for post op hematoma, scrotal cellulitis, managed conservatively. Re-admitted for wound concerns. No fever, no chill.s Images with no gangrene. af vssn labs unremarkable. ROS ROS: RESPIRATORY: Shortness of breath denies. Cough denies. UROLOGY: Denies blood in urine. Denies difficulty urinating Current Medications Current Medications Fentanyl Citrate (Fentanyl 2ml Vial) 50 mcg PRN Q15MIN PRN IV PAIN GREATER THAN 3/10 Last administered on 06/12/19at 01:10; Start 06/11/19 at 20:15; Stop 06/12/19 at 13:17; Status DC Sodium Chloride 1,000 ml @ 1,000 mls/hr Q1H IV Last administered on 06/11/19at 20:33; Start 06/11/19 at 20:05; Stop 06/11/19 at 21:04; Status DC Ondansetron HCl (Zofran) 4 mg 1X ONCE IV Last administered on 06/11/19at 20:33; Start 06/11/19 at 20:15; Stop 06/11/19 at 20:16; Status DC Iohexol (Omnipaque 300 Mg/ml) 75 ml 1X ONCE IV ; Start 06/11/19 at 22:00; Stop 06/11/19 at 22:01; Status DC Info (CONTRAST GIVEN -- Rx MONITORING) 1 each PRN DAILY PRN MC SEE COMMENTS; Start 06/11/19 at 21:45; Stop 06/13/19 at 21:44 Piperacillin Sod/ Tazobactam Sod 3.375 gm/Sodium Chloride 50 ml @ 100 mls/hr 1X ONCE IV Last administered on 06/11/19at 22:31; Start 06/11/19 at 22:30; Stop 06/11/19 at 22:59; Status DC Vancomycin HCl 250 ml @ 250 mls/hr 1X ONCE IV ; Start 06/11/19 at 22:15; Stop 06/11/19 at 23:14; Status UNV Vancomycin HCl 2 gm/Sodium Chloride 500 ml @ 250 mls/hr 1X ONCE IV Last administered on 06/11/19at 22:31; Start 06/11/19 at 23:00; Stop 06/12/19 at 00:59; Status DC Vancomycin HCl (Vanco Per Pharmacy) 1 each PRN DAILY PRN MC SEE COMMENTS Last administered on 06/12/19at 10:03; Start 06/11/19 at 22:30; Stop 06/12/19 at 13:05; Status DC Ondansetron HCl (Zofran) 4 mg PRN Q8HRS PRN IV NAUSEA/VOMITING 1ST CHOICE; Start 06/11/19 at 22:30; Stop 06/12/19 at 22:29 Fentanyl Citrate (Fentanyl 2ml Vial) 50 mcg PRN Q1HR PRN IV SEVERE PAIN 7-10 Last administered on 06/12/19at 08:16; Start 06/11/19 at 22:30; Stop 06/12/19 at 22:29 Acetaminophen (Tylenol) 650 mg PRN Q4HRS PRN PO FEVER; Start 06/11/19 at 22:30; Stop 06/12/19 at 22:29 Albuterol Sulfate (Ventolin Neb Soln) 2.5 mg PRN Q6HRS PRN INH SHORTNESS OF BREATH; Start 06/12/19 at 09:45 Amlodipine Besylate (Norvasc) 10 mg DAILY PO ; Start 06/13/19 at 09:00 Atorvastatin Calcium (Lipitor) 40 mg QHS PO ; Start 06/13/19 at 21:00 Acetaminophen/ Hydrocodone Bitart (Lortab 10/325) 1 tab PRN Q6HRS PRN PO PAIN Last administered on 06/12/19at 10:18; Start 06/12/19 at 09:45 Lisinopril (Prinivil) 20 mg BID PO Last administered on 06/12/19at 10:18; Start 06/12/19 at 10:30 Spironolactone (Aldactone) 25 mg DAILY PO Last administered on 06/12/19at 10:18; Start 06/12/19 at 10:30 Non-Formulary Medication (Budesonide/ Formoterol Fumarate (Symbicort 160-4.5 Mcg Inhaler)) 1 puff BID IH ; Start 06/12/19 at 21:00; Status UNV Glimepiride (Amaryl) 2 mg DAILY PO Last administered on 06/12/19at 10:18; Start 06/12/19 at 10:30 Hydrochlorothiazide (Hydrodiuril) 25 mg DAILY PO Last administered on 06/12/19at 10:18; Start 06/12/19 at 10:30 Budesonide (Pulmicort) 0.5 mg RTBID NEB Last administered on 06/12/19at 11:17; Start 06/12/19 at 12:00 Albuterol Sulfate (Ventolin Neb Soln) 2.5 mg RTQID NEB Last administered on 06/12/19at 15:40; Start 06/12/19 at 12:00 Vancomycin HCl 1.75 gm/Sodium Chloride 500 ml @ 250 mls/hr Q12H IV ; Start 06/12/19 at 11:00; Stop 06/12/19 at 13:05; Status DC Vancomycin HCl (Vancomycin Trough Level) 1 each 1X ONCE MC ; Start 06/13/19 at 10:30; Stop 06/12/19 at 13:11; Status DC Linezolid (Zyvox) 600 mg BID PO Last administered on 06/12/19at 14:13; Start 06/12/19 at 14:00 Fluconazole (Diflucan) 100 mg DAILY PO Last administered on 06/12/19at 14:13; Start 06/12/19 at 14:00 Piperacillin Sod/ Tazobactam Sod 3.375 gm/Sodium Chloride 50 ml @ 100 mls/hr Q6HRS IV Last administered on 06/12/19at 14:13; Start 06/12/19 at 13:30 Lactobacillus Rhamnosus (Culturelle) 1 cap BID PO ; Start 06/12/19 at 21:00 Active Scripts Active Atorvastatin Calcium 40 Mg Tablet 1 Tab PO DAILY 30 Days Prinivil (Lisinopril) 20 Mg Tablet 20 Mg PO BID Reported Spironolactone 25 Mg Tablet 1 Tab PO DAILY Proair Hfa Inhaler (Albuterol Sulfate) 8.5 Gm Hfa.aer.ad 1 Puff INH PRN Q6HRS PRN Symbicort 160-4.5 Mcg Inhaler (Budesonide/Formoterol Fumarate) 10.2 Gm Hfa.aer.ad 1 Puff IH BID Hydrocodone-Apap 10-325 (Hydrocodone Bit/Acetaminophen) 1 Tab Tablet 1 Tab PO PRN Q6HRS PRN Glimepiride 1 Mg Tablet 2 Tab PO DAILY Hydrochlorothiazide Tablet (Hydrochlorothiazide) 12.5 Mg Tablet 2 Tab PO DAILY Amlodipine Besylate 10 Mg Tablet 10 Mg PO DAILY Metformin Hcl 500 Mg Tablet 1,000 Mg PO BIDWMEALS Allergies: Coded Allergies: No Known Drug Allergies (Unverified , 12/16/14) Physical Examination PHYSICAL EXAMINATION: GENERAL: Gen. appearance: No acute distress. Mood/affect: Pleasant. HEENT: Head: Normocephalic, atraumatic. Airway Impairment: No. CHEST: Shape and expansion: Normal. Expansion: Normal. SKIN: General: Warm. Color: Good. GENITOURINARY:External genitalia - wnl. NEUROLOGICAL: Mental status: Alert and oriented �3. Language: Normal. left hemiscrotum swelling much improved. incision with fibrinous material , but no pus. reduced wound erythema spread and intensity VITALS Vital Signs Date Time Temp Pulse Resp B/P (MAP) Pulse Ox O2 Delivery O2 Flow Rate FiO2 06/12/19 15:41 94 Room Air 06/12/19 15:16 98.2 87 16 125/77 (93) 98.2 Labs Laboratory Tests Test 06/11/19 19:47 06/11/19 20:05 06/12/19 04:05 06/12/19 08:02 Urine Collection Type Unknown Urine Color Yellow Urine Clarity Clear Urine pH 6.0 Urine Specific [place] <=1.005 Urine Protein Negative mg/dL (NEG-TRACE) Urine Glucose (UA) Negative mg/dL (NEG) Urine Ketones (Stick) Negative mg/dL (NEG) Urine Blood Negative (NEG) Urine Nitrite Negative (NEG) Urine Bilirubin Negative (NEG) Urine Urobilinogen Dipstick 0.2 mg/dL (0.2 mg/dL) Urine Leukocyte Esterase Negative (NEG) Urine RBC 0 /HPF (0-2) Urine WBC 0 /HPF (0-4) Urine Squamous Epithelial Cells Occ /LPF Urine Bacteria 0 /HPF (0-FEW) White Blood Count 9.4 x10^3/uL (4.0-11.0) 8.5 x10^3/uL (4.0-11.0) Red Blood Count 4.28 x10^6/uL (4.30-5.70) 4.00 x10^6/uL (4.30-5.70) Hemoglobin 12.9 g/dL (13.0-17.5) 11.9 g/dL (13.0-17.5) Hematocrit 36.0 % (39.0-53.0) 33.9 % (39.0-53.0) Mean Corpuscular Volume 84 fL (79-100) 85 fL (79-100) Mean Corpuscular Hemoglobin 30 pg (25-35) 30 pg (25-35) Mean Corpuscular Hemoglobin Concent 36 g/dL (31-37) 35 g/dL (31-37) Red Cell Distribution Width 13.9 % (11.5-14.5) 14.2 % (11.5-14.5) Platelet Count 230 x10^3/uL (140-400) 211 x10^3/uL (140-400) Neutrophils (%) (Auto) 70 % (31-73) 64 % (31-73) Lymphocytes (%) (Auto) 22 % (24-48) 25 % (24-48) Monocytes (%) (Auto) 5 % (0-9) 7 % (0-9) Eosinophils (%) (Auto) 3 % (0-3) 4 % (0-3) Basophils (%) (Auto) 1 % (0-3) 1 % (0-3) Neutrophils # (Auto) 6.5 x10^3/uL (1.8-7.7) 5.4 x10^3/uL (1.8-7.7) Lymphocytes # (Auto) 2.0 x10^3/uL (1.0-4.8) 2.1 x10^3/uL (1.0-4.8) Monocytes # (Auto) 0.5 x10^3/uL (0.0-1.1) 0.6 x10^3/uL (0.0-1.1) Eosinophils # (Auto) 0.3 x10^3/uL (0.0-0.7) 0.3 x10^3/uL (0.0-0.7) Basophils # (Auto) 0.1 x10^3/uL (0.0-0.2) 0.0 x10^3/uL (0.0-0.2) Sodium Level 139 mmol/L (136-145) 141 mmol/L (136-145) Potassium Level 3.6 mmol/L (3.5-5.1) 3.8 mmol/L (3.5-5.1) Chloride Level 99 mmol/L (98-107) 103 mmol/L (98-107) Carbon Dioxide Level 30 mmol/L (21-32) 30 mmol/L (21-32) Anion Gap 10 (6-14) 8 (6-14) Blood Urea Nitrogen 11 mg/dL (8-26) 9 mg/dL (8-26) Creatinine 1.1 mg/dL (0.7-1.3) 1.1 mg/dL (0.7-1.3) Estimated GFR (Cockcroft-Gault) 69.0 69.0 BUN/Creatinine Ratio 10 (6-20) Glucose Level 181 mg/dL (70-99) 135 mg/dL (70-99) Calcium Level 9.3 mg/dL (8.5-10.1) 8.9 mg/dL (8.5-10.1) Total Bilirubin 0.6 mg/dL (0.2-1.0) Aspartate Amino Transf (AST/SGOT) 18 U/L (15-37) Alanine Aminotransferase (ALT/SGPT) 34 U/L (16-63) Alkaline Phosphatase 128 U/L (46-116) Total Protein 8.0 g/dL (6.4-8.2) Albumin 3.8 g/dL (3.4-5.0) Albumin/Globulin Ratio 0.9 (1.0-1.7) Segmented Neutrophils % 61 % (35-66) Band Neutrophils % 3 % (0-9) Lymphocytes % 19 % (24-48) Atypical Lymphocytes % (Manual) 1 % (0-0) Monocytes % 7 % (0-10) Eosinophils % 6 % (0-5) Metamyelocytes % 1 % (0-0) Myelocytes % 2 % (0-0) Platelet Estimate Adequate (ADEQUATE) Polychromasia Present Anisocytosis Slight Glucose (Fingerstick) 130 mg/dL (70-99) Test 06/12/19 11:54 Glucose (Fingerstick) 149 mg/dL (70-99) Laboratory Tests Test 06/11/19 19:47 06/11/19 20:05 06/12/19 04:05 06/12/19 08:02 Urine Collection Type Unknown Urine Color Yellow Urine Clarity Clear Urine pH 6.0 Urine Specific [place] <=1.005 Urine Protein Negative mg/dL (NEG-TRACE) Urine Glucose (UA) Negative mg/dL (NEG) Urine Ketones (Stick) Negative mg/dL (NEG) Urine Blood Negative (NEG) Urine Nitrite Negative (NEG) Urine Bilirubin Negative (NEG) Urine Urobilinogen Dipstick 0.2 mg/dL (0.2 mg/dL) Urine Leukocyte Esterase Negative (NEG) Urine RBC 0 /HPF (0-2) Urine WBC 0 /HPF (0-4) Urine Squamous Epithelial Cells Occ /LPF Urine Bacteria 0 /HPF (0-FEW) White Blood Count 9.4 x10^3/uL (4.0-11.0) 8.5 x10^3/uL (4.0-11.0) Red Blood Count 4.28 x10^6/uL (4.30-5.70) 4.00 x10^6/uL (4.30-5.70) Hemoglobin 12.9 g/dL (13.0-17.5) 11.9 g/dL (13.0-17.5) Hematocrit 36.0 % (39.0-53.0) 33.9 % (39.0-53.0) Mean Corpuscular Volume 84 fL (79-100) 85 fL (79-100) Mean Corpuscular Hemoglobin 30 pg (25-35) 30 pg (25-35) Mean Corpuscular Hemoglobin Concent 36 g/dL (31-37) 35 g/dL (31-37) Red Cell Distribution Width 13.9 % (11.5-14.5) 14.2 % (11.5-14.5) Platelet Count 230 x10^3/uL (140-400) 211 x10^3/uL (140-400) Neutrophils (%) (Auto) 70 % (31-73) 64 % (31-73) Lymphocytes (%) (Auto) 22 % (24-48) 25 % (24-48) Monocytes (%) (Auto) 5 % (0-9) 7 % (0-9) Eosinophils (%) (Auto) 3 % (0-3) 4 % (0-3) Basophils (%) (Auto) 1 % (0-3) 1 % (0-3) Neutrophils # (Auto) 6.5 x10^3/uL (1.8-7.7) 5.4 x10^3/uL (1.8-7.7) Lymphocytes # (Auto) 2.0 x10^3/uL (1.0-4.8) 2.1 x10^3/uL (1.0-4.8) Monocytes # (Auto) 0.5 x10^3/uL (0.0-1.1) 0.6 x10^3/uL (0.0-1.1) Eosinophils # (Auto) 0.3 x10^3/uL (0.0-0.7) 0.3 x10^3/uL (0.0-0.7) Basophils # (Auto) 0.1 x10^3/uL (0.0-0.2) 0.0 x10^3/uL (0.0-0.2) Sodium Level 139 mmol/L (136-145) 141 mmol/L (136-145) Potassium Level 3.6 mmol/L (3.5-5.1) 3.8 mmol/L (3.5-5.1) Chloride Level 99 mmol/L (98-107) 103 mmol/L (98-107) Carbon Dioxide Level 30 mmol/L (21-32) 30 mmol/L (21-32) Anion Gap 10 (6-14) 8 (6-14) Blood Urea Nitrogen 11 mg/dL (8-26) 9 mg/dL (8-26) Creatinine 1.1 mg/dL (0.7-1.3) 1.1 mg/dL (0.7-1.3) Estimated GFR (Cockcroft-Gault) 69.0 69.0 BUN/Creatinine Ratio 10 (6-20) Glucose Level 181 mg/dL (70-99) 135 mg/dL (70-99) Calcium Level 9.3 mg/dL (8.5-10.1) 8.9 mg/dL (8.5-10.1) Total Bilirubin 0.6 mg/dL (0.2-1.0) Aspartate Amino Transf (AST/SGOT) 18 U/L (15-37) Alanine Aminotransferase (ALT/SGPT) 34 U/L (16-63) Alkaline Phosphatase 128 U/L (46-116) Total Protein 8.0 g/dL (6.4-8.2) Albumin 3.8 g/dL (3.4-5.0) Albumin/Globulin Ratio 0.9 (1.0-1.7) Segmented Neutrophils % 61 % (35-66) Band Neutrophils % 3 % (0-9) Lymphocytes % 19 % (24-48) Atypical Lymphocytes % (Manual) 1 % (0-0) Monocytes % 7 % (0-10) Eosinophils % 6 % (0-5) Metamyelocytes % 1 % (0-0) Myelocytes % 2 % (0-0) Platelet Estimate Adequate (ADEQUATE) Polychromasia Present Anisocytosis Slight Glucose (Fingerstick) 130 mg/dL (70-99) Test 06/12/19 11:54 Glucose (Fingerstick) 149 mg/dL (70-99) Assessment/Plan post op hematoma, managed conservatively. Poor wound healing, proB from diabetes. rest, ice, elevation, tincture of time. Po bactrim or clinda for 2 weeks. GRANT Murillo s OP next week. No intervention needed. Will sign off. LENNOX MADRIGAL MD Jun 12, 2019 16:23
[2019-06-12] MEDS: LACTOBACILLUS RHAMNOSUS GG 1 CAPSULE. PO SCH (20:47)
[2019-06-12] MEDS ORDERED: NON FORMULARY ITEM (Budesonide/Formoterol Fumarate (Symbicort 160-4.5 Mcg Inhaler) 1 PUFF) IH SCH (21:00)
[2019-06-13] MEDS: PIPERACILLIN/TAZOBACTAM 3.375 GM in IV NORMAL SALINE 50ML 50 ML IV SCH ×4 (00:21→18:19)
[2019-06-13 03:39] VITALS: BP 130/84
[2019-06-13 07:00] VITALS: BP 124/87
[2019-06-13] MEDS: LINEZOLID 600 MG TABLET PO SCH ×2 (07:52→20:53)
[2019-06-13] MEDS: FLUCONAZOLE 100 MG TABLET. PO SCH (07:52)
[2019-06-13] MEDS: LACTOBACILLUS RHAMNOSUS GG 1 CAPSULE. PO SCH ×2 (07:53→20:53)
[2019-06-13] MEDS: SPIRONOLACTONE 25 MG TABLET PO SCH (07:53)
[2019-06-13] MEDS: hydroCHLOROthiazide 25 MG TABLET PO SCH (07:53)
[2019-06-13] MEDS: GLIMEPIRIDE 2 MG TABLET. PO SCH (07:53)
[2019-06-13] MEDS: HYDROcodone/APAP 10/325 1 TAB TABLET PO PRN ×2 (07:54→18:19)
[2019-06-13] MEDS: LISINOPRIL 20 MG TABLET PO SCH ×2 (07:54→20:53)
[2019-06-13] MEDS: BUDESONIDE 0.5 MG/2 ML NEBU. NEB SCH ×2 (08:05→20:01)
[2019-06-13] MEDS: ALBUTEROL SULFATE 2.5 MG/3 ML NEBU. NEB SCH ×4 (08:05→20:01)
[2019-06-13 09:04] LABS: CREATININE 1.1 mg/dL (0.7-1.3)
--- NOTE | 2019-06-13 10:08 | PDOC ---
Infectious Disease Note Subjective: Subjective Pt says feels a little better Less bleeding and drainage from surgical wound with pain. He denies any fever/chills/nausea/vomiting/sob/diarrhea/rash. ROS: ROS Negative otherwise. Vital Signs: Vital Signs Vital Signs Date Time Temp Pulse Resp B/P (MAP) Pulse Ox O2 Delivery O2 Flow Rate FiO2 06/13/19 08:07 97 Room Air 06/13/19 07:55 20 06/13/19 07:55 60 130/84 06/13/19 07:00 97.7 97.7 Physical Exam: PHYSICAL EXAM GENERAL: Propped up in bed, alert, NAD HEENT: Oral cavity, pharynx is clear.Anicteric, no thrush NECK: Supple LUNGS: Clear to auscultation HEART: S1, S2. ABDOMEN: Morbidly obese, soft, no guarding, no rebound. Positive bowel sounds. Scrotal edema , erythema, tenderness, Lt more than Rt side, incision is intact, EXTREMITIES: No clubbing, cyanosis or gross edema. NEUROLOGIC: Alert, responds appropriately Medications: Inpatient Meds: Current Medications Medications (Trade) Dose Ordered Sig/Elie Start Time Stop Time Status Last Admin Dose Admin Acetaminophen (Tylenol) 650 mg PRN Q4HRS PRN 06/11/19 22:30 06/12/19 22:29 DC Acetaminophen/ Hydrocodone Bitart (Lortab 10/325) 1 tab PRN Q6HRS PRN 06/12/19 09:45 06/13/19 07:55 1 TAB Albuterol Sulfate (Ventolin Neb Soln) 2.5 mg RTQID 06/12/19 12:00 06/13/19 08:06 2.5 MG Amlodipine Besylate (Norvasc) 10 mg DAILY 06/13/19 09:00 Atorvastatin Calcium (Lipitor) 40 mg QHS 06/13/19 21:00 Budesonide (Pulmicort) 0.5 mg RTBID 06/12/19 12:00 06/13/19 08:06 0.5 MG Fentanyl Citrate (Fentanyl 2ml Vial) 50 mcg PRN Q1HR PRN 06/11/19 22:30 06/12/19 22:29 DC 06/12/19 08:16 50 MCG Fluconazole (Diflucan) 100 mg DAILY 06/12/19 14:00 06/13/19 07:55 100 MG Glimepiride (Amaryl) 2 mg DAILY 06/12/19 10:30 06/13/19 07:55 2 MG Hydrochlorothiazide (Hydrodiuril) 25 mg DAILY 06/12/19 10:30 06/13/19 07:55 25 MG Info (CONTRAST GIVEN -- Rx MONITORING) 1 each PRN DAILY PRN 06/11/19 21:45 06/13/19 21:44 Iohexol (Omnipaque 300 Mg/ml) 75 ml 1X ONCE 06/11/19 22:00 06/11/19 22:01 DC Lactobacillus Rhamnosus (Culturelle) 1 cap BID 06/12/19 21:00 06/13/19 07:55 1 CAP Linezolid (Zyvox) 600 mg BID 06/12/19 14:00 06/13/19 07:55 600 MG Lisinopril (Prinivil) 20 mg BID 06/12/19 10:30 06/13/19 07:55 20 MG Non-Formulary Medication (Budesonide/ Formoterol Fumarate (Symbicort 160-4.5 Mcg Inhaler)) 1 puff BID 06/12/19 21:00 UNV Ondansetron HCl (Zofran) 4 mg PRN Q8HRS PRN 06/11/19 22:30 06/12/19 22:29 DC Piperacillin Sod/ Tazobactam Sod 3.375 gm/Sodium Chloride 50 ml @ 100 mls/hr Q6HRS 06/12/19 13:30 06/13/19 06:11 100 MLS/HR Sodium Chloride 1,000 ml @ 1,000 mls/hr Q1H 06/11/19 20:05 06/11/19 21:04 DC 06/11/19 20:33 1,000 MLS/HR Spironolactone (Aldactone) 25 mg DAILY 06/12/19 10:30 06/13/19 07:55 25 MG Vancomycin HCl (Vanco Per Pharmacy) 1 each PRN DAILY PRN 06/11/19 22:30 06/12/19 13:05 DC 06/12/19 10:03 1 EACH Vancomycin HCl (Vancomycin Trough Level) 1 each 1X ONCE 06/13/19 10:30 06/12/19 13:11 DC Vancomycin HCl 1.75 gm/Sodium Chloride 500 ml @ 250 mls/hr Q12H 06/12/19 11:00 06/12/19 13:05 DC Vancomycin HCl 2 gm/Sodium Chloride 500 ml @ 250 mls/hr 1X ONCE 06/11/19 23:00 06/12/19 00:59 DC 06/11/19 22:31 250 MLS/HR Labs: Lab Laboratory Tests Test 06/12/19 11:54 06/12/19 16:39 06/12/19 21:02 06/13/19 07:40 Glucose (Fingerstick) 149 mg/dL (70-99) 131 mg/dL (70-99) 155 mg/dL (70-99) Creatinine 1.1 mg/dL (0.7-1.3) Estimated GFR (Cockcroft-Gault) 69.0 Test 06/13/19 07:43 Glucose (Fingerstick) 120 mg/dL (70-99) Objective: Assessment: s/p recent hydrocoele surgery 3/12 weeks ago now with drainage from the scrotal incision site,likely underlying hematoma with mild superimposed infection no abscess on imaging Hydrocoele Diabetes. Plan: Plan of Care Cont Zyvox, Zosyn, fluconazole Probiotics f/u labs and cults cont supportive care local care per urology d/w ELANA Bedoya MD Jun 13, 2019 10:08
[2019-06-13 10:35] VITALS: BP 133/92
--- NOTE | 2019-06-13 11:02 | PDOC ---
GENERAL General: vss and afebrile sugars good. less pain daily. urology notes appreciated. ID running antibiotic orders. chest clear, heart regular, abdomen benign, scrotum better daily. continue present. blood cultures negative to date. VITAL SIGNS/I&O Vital Signs/I&O: Vital Signs Date Time Temp Pulse Resp B/P (MAP) Pulse Ox O2 Delivery O2 Flow Rate FiO2 06/13/19 10:35 98.1 107 18 133/92 (106) 90 Room Air 98.1 I & O 06/12/19 06/12/19 06/13/19 15:00 23:00 07:00 Intake Total 540 ml Output Total 1000 ml Balance -460 ml ALLERGIES Allergies: Allergies Coded Allergies Type Severity Reaction Last Updated Verified No Known Drug Allergies 12/16/14 No MEDS Medications: Current Medications Medications (Trade) Dose Ordered Sig/Elie Route PRN Reason Start Time Stop Time Status Last Admin Dose Admin Budesonide (Pulmicort) 0.5 mg RTBID NEB 06/12/19 12:00 06/13/19 08:06 Albuterol Sulfate (Ventolin Neb Soln) 2.5 mg RTQID NEB 06/12/19 12:00 06/13/19 08:06 Linezolid (Zyvox) 600 mg BID PO 06/12/19 14:00 06/13/19 07:55 Fluconazole (Diflucan) 100 mg DAILY PO 06/12/19 14:00 06/13/19 07:55 Piperacillin Sod/ Tazobactam Sod 3.375 gm/Sodium Chloride 50 ml @ 100 mls/hr Q6HRS IV 06/12/19 13:30 06/13/19 06:11 Lactobacillus Rhamnosus (Culturelle) 1 cap BID PO 06/12/19 21:00 06/13/19 07:55 LAB Lab: Laboratory Tests Test 06/12/19 11:54 06/12/19 16:39 06/12/19 21:02 06/13/19 07:40 Glucose (Fingerstick) 149 mg/dL (70-99) H 131 mg/dL (70-99) H 155 mg/dL (70-99) H Creatinine 1.1 mg/dL (0.7-1.3) Estimated GFR (Cockcroft-Gault) 69.0 Test 06/13/19 07:43 Glucose (Fingerstick) 120 mg/dL (70-99) H Laboratory Tests 06/13/19 07:40 QUINN PRESTON MD Jun 13, 2019 11:02
[2019-06-13] MEDS: amLODIPine BESYLATE 10 MG TABLET PO SCH (12:41)
[2019-06-13 14:49] VITALS: BP 111/77
[2019-06-13 19:30] VITALS: BP 122/86
[2019-06-13] MEDS: ATORVASTATIN CALCIUM 40 MG TABLET. PO SCH (20:53)
[2019-06-13 23:42] VITALS: BP 104/69
[2019-06-14] MEDS: PIPERACILLIN/TAZOBACTAM 3.375 GM in IV NORMAL SALINE 50ML 50 ML IV SCH ×4 (00:22→16:36)
[2019-06-14 03:01] VITALS: BP 110/72
[2019-06-14 07:00] VITALS: BP 121/79
[2019-06-14] MEDS: ALBUTEROL SULFATE 2.5 MG/3 ML NEBU. NEB SCH ×4 (07:45→19:30)
[2019-06-14] MEDS: BUDESONIDE 0.5 MG/2 ML NEBU. NEB SCH ×2 (07:46→19:30)
[2019-06-14] MEDS: hydroCHLOROthiazide 25 MG TABLET PO SCH (08:16)
[2019-06-14] MEDS: LINEZOLID 600 MG TABLET PO SCH ×2 (08:16→20:52)
[2019-06-14] MEDS: HYDROcodone/APAP 10/325 1 TAB TABLET PO PRN ×3 (08:16→20:54)
[2019-06-14] MEDS: GLIMEPIRIDE 2 MG TABLET. PO SCH (08:16)
[2019-06-14] MEDS: SPIRONOLACTONE 25 MG TABLET PO SCH (08:16)
[2019-06-14] MEDS: FLUCONAZOLE 100 MG TABLET. PO SCH (08:16)
[2019-06-14] MEDS: LACTOBACILLUS RHAMNOSUS GG 1 CAPSULE. PO SCH ×2 (08:16→20:51)
[2019-06-14] MEDS: amLODIPine BESYLATE 10 MG TABLET PO SCH (08:17)
[2019-06-14] MEDS: LISINOPRIL 20 MG TABLET PO SCH ×2 (08:17→20:51)
--- NOTE | 2019-06-14 08:44 | PDOC ---
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
[2019-06-14] MEDS: BACITRACIN/POLYMYXIN B TOPICAL OINT 15GM TUBE. TP SCH ×3 (09:00→20:53)
--- NOTE | 2019-06-14 09:40 | PDOC ---
Infectious Disease Note Subjective Subjective Pt says feels better Less drainage from surgical wound with pain. He denies any fever/chills/nausea/vomiting/sob/diarrhea/rash. ROS ROS o/w neg Vital Sign Vital Signs Vital Signs Date Time Temp Pulse Resp B/P (MAP) Pulse Ox O2 Delivery O2 Flow Rate FiO2 06/14/19 08:17 94 121/79 06/14/19 08:17 95 Room Air 06/14/19 07:00 98.0 18 98.0 Physical Exam PHYSICAL EXAM GENERAL: Propped up in bed, alert, NAD HEENT: Oral cavity, pharynx is clear.Anicteric, no thrush NECK: Supple LUNGS: Clear to auscultation HEART: S1, S2. ABDOMEN: Morbidly obese, soft, no guarding, no rebound. Positive bowel sounds. Scrotal edema ,min erythema, no gross tenderness, Lt more than Rt side, incision is intact- small open area but clean EXTREMITIES: No clubbing, cyanosis or gross edema. NEUROLOGIC: Alert, responds appropriately Labs Lab Laboratory Tests Test 06/13/19 11:40 06/13/19 16:43 06/13/19 20:45 06/14/19 04:30 Glucose (Fingerstick) 196 mg/dL (70-99) 144 mg/dL (70-99) 178 mg/dL (70-99) Creatinine 1.0 mg/dL (0.7-1.3) Estimated GFR (Cockcroft-Gault) 77.0 Test 06/14/19 07:36 Glucose (Fingerstick) 143 mg/dL (70-99) Micro Microbiology 06/11/19 Aerobic Culture, Resulted Pending 06/11/19 Aerobic Culture Result 1 (ESTEBAN), Resulted Pending 06/11/19 Gram Stain - Final, Resulted 06/11/19 Gram Stain Result 1 (ESTEBAN) - Final, Resulted 06/11/19 Gram Stain Result 2 (ESTEBAN) - Final, Resulted 06/11/19 Blood Culture - Preliminary, Resulted NO GROWTH AFTER 2 DAYS Objective Assessment s/p recent hydrocoele surgery 3/12 weeks ago now with drainage from the scrotal incision site,likely underlying hematoma with mild superimposed infection - GNR on gram stain 06/11 no abscess on imaging Hydrocoele Diabetes. Plan Plan of Care Cont Zyvox, Zosyn, fluconazole - for now Probiotics f/u labs and cults cont supportive care local care per urology d/w rn KANE NO MD Jun 14, 2019 09:40
--- NOTE | 2019-06-14 10:38 | NUR ---
SS following for discharge planning. SS reviewed pt chart. Pt is from home with spouse and is currently on room air. No discharge needs noted at this time. SS will continue to follow for discharge planning.
[2019-06-14 11:00] VITALS: BP 123/84
[2019-06-14 15:00] VITALS: BP 113/66
[2019-06-14 19:00] VITALS: BP 126/88
[2019-06-14] MEDS: ATORVASTATIN CALCIUM 40 MG TABLET. PO SCH (20:51)
[2019-06-14 23:00] VITALS: BP 108/66
[2019-06-15] MEDS: PIPERACILLIN/TAZOBACTAM 3.375 GM in IV NORMAL SALINE 50ML 50 ML IV SCH ×4 (00:02→17:56)
[2019-06-15 03:00] VITALS: BP 123/86
[2019-06-15] MEDS: HYDROcodone/APAP 10/325 1 TAB TABLET PO PRN ×3 (03:26→17:56)
[2019-06-15 06:11] LABS: CREATININE 1.1 mg/dL (0.7-1.3)
[2019-06-15 07:00] VITALS: BP 122/87
[2019-06-15] MEDS: BUDESONIDE 0.5 MG/2 ML NEBU. NEB SCH ×2 (08:04→19:43)
[2019-06-15] MEDS: ALBUTEROL SULFATE 2.5 MG/3 ML NEBU. NEB SCH ×4 (08:04→19:43)
[2019-06-15] MEDS: SPIRONOLACTONE 25 MG TABLET PO SCH (08:07)
[2019-06-15] MEDS: LISINOPRIL 20 MG TABLET PO SCH ×2 (08:07→20:53)
[2019-06-15] MEDS: GLIMEPIRIDE 2 MG TABLET. PO SCH (08:07)
[2019-06-15] MEDS: LACTOBACILLUS RHAMNOSUS GG 1 CAPSULE. PO SCH ×2 (08:07→20:52)
[2019-06-15] MEDS: hydroCHLOROthiazide 25 MG TABLET PO SCH (08:08)
[2019-06-15] MEDS: FLUCONAZOLE 100 MG TABLET. PO SCH (08:08)
[2019-06-15] MEDS: amLODIPine BESYLATE 10 MG TABLET PO SCH (08:08)
[2019-06-15] MEDS: LINEZOLID 600 MG TABLET PO SCH (08:08)
[2019-06-15] MEDS: BACITRACIN/POLYMYXIN B TOPICAL OINT 15GM TUBE. TP SCH ×3 (08:10→20:53)
--- NOTE | 2019-06-15 08:25 | PDOC ---
Provider Note Provider Note vss, no temp, labs ok, cult still pending re gram neg dez in grams stain- wound better , cont polysporin, can dc when proper med known per cult as he failed op treatment DIANNA LENNON MD Jun 15, 2019 08:25
[2019-06-15 11:00] VITALS: BP 132/87
--- NOTE | 2019-06-15 12:50 | PDOC ---
Infectious Disease Note Subjective Subjective Pt says feels better Less drainage from surgical wound with pain. He denies any fever/chills/nausea/vomiting/sob/diarrhea/rash. Vital Sign Vital Signs Vital Signs Date Time Temp Pulse Resp B/P (MAP) Pulse Ox O2 Delivery O2 Flow Rate FiO2 06/15/19 12:30 Room Air 06/15/19 11:00 98.1 58 16 132/87 (102) 92 98.1 Physical Exam PHYSICAL EXAM GENERAL: In chair alert, NAD HEENT: Oral cavity, pharynx is clear.Anicteric, no thrush NECK: Supple LUNGS: Clear to auscultation HEART: S1, S2. ABDOMEN: Morbidly obese, soft, no guarding, no rebound. Positive bowel sounds. Scrotal edema ,min erythema, no gross tenderness, Lt more than Rt side, incision is intact- small open area but clean EXTREMITIES: No clubbing, cyanosis or gross edema. NEUROLOGIC: Alert, responds appropriately Labs Lab Laboratory Tests Test 06/15/19 05:30 Creatinine 1.1 mg/dL (0.7-1.3) Estimated GFR (Cockcroft-Gault) 69.0 Micro Microbiology 06/11/19 Aerobic Culture, Resulted Pending 06/11/19 Aerobic Culture Result 1 (ESTEBAN), Resulted Pending 06/11/19 Gram Stain - Final, Resulted 06/11/19 Gram Stain Result 1 (ESTEBAN) - Final, Resulted 06/11/19 Gram Stain Result 2 (ESTEBAN) - Final, Resulted 06/11/19 Blood Culture - Preliminary, Resulted NO GROWTH AFTER 2 DAYS Objective Assessment s/p recent hydrocoele surgery 3.5 weeks ago now with drainage from the scrotal incision site,likely underlying hematoma with mild superimposed infection - GNR on gram stain 06/11 no abscess on imaging Hydrocoele Diabetes. Plan Plan of Care Discont Zyvox, Cont Zosyn, fluconazole - for now f/u GNR results Probiotics f/u labs and cults cont supportive care local care per urology d/w KANE Salmeron MD Jun 15, 2019 12:50
--- NOTE | 2019-06-15 14:30 | NUR ---
Report received from ADRIANNA Kearney, this nurse is taking over care for this pt.
[2019-06-15 15:00] VITALS: BP 100/72
[2019-06-15 19:00] VITALS: BP 107/72
[2019-06-15] MEDS: ATORVASTATIN CALCIUM 40 MG TABLET. PO SCH (20:52)
[2019-06-15 22:51] VITALS: BP 118/73
[2019-06-16] MEDS: PIPERACILLIN/TAZOBACTAM 3.375 GM in IV NORMAL SALINE 50ML 50 ML IV SCH ×2 (00:22→05:29)
[2019-06-16 03:00] VITALS: BP 111/73
[2019-06-16] MEDS: HYDROcodone/APAP 10/325 1 TAB TABLET PO PRN (05:28)
[2019-06-16 07:00] VITALS: BP 116/81
--- NOTE | 2019-06-16 08:23 | PDOC ---
Provider Note Provider Note [id number] DIANNA LENNON MD Jun 16, 2019 08:23
[2019-06-16] MEDS: ALBUTEROL SULFATE 2.5 MG/3 ML NEBU. NEB SCH (08:34)
[2019-06-16] MEDS: BUDESONIDE 0.5 MG/2 ML NEBU. NEB SCH (08:34)
[2019-06-16] MEDS: amLODIPine BESYLATE 10 MG TABLET PO SCH (08:54)
[2019-06-16 08:55] VITALS: BP 116/81
[2019-06-16] MEDS: GLIMEPIRIDE 2 MG TABLET. PO SCH (08:55)
[2019-06-16] MEDS: LISINOPRIL 20 MG TABLET PO SCH (08:55)
[2019-06-16] MEDS: LACTOBACILLUS RHAMNOSUS GG 1 CAPSULE. PO SCH (08:55)
[2019-06-16] MEDS: FLUCONAZOLE 100 MG TABLET. PO SCH (08:55)
[2019-06-16] MEDS: hydroCHLOROthiazide 25 MG TABLET PO SCH (08:55)
[2019-06-16] MEDS: SPIRONOLACTONE 25 MG TABLET PO SCH (08:55)
[2019-06-16] MEDS: BACITRACIN/POLYMYXIN B TOPICAL OINT 15GM TUBE. TP SCH (08:56)
[2019-06-16] MEDS ORDERED: SMZ/TMP 800/160MG TABLET. PO SCH (09:00)
--- NOTE | 2019-06-16 10:11 | PDOC ---
Infectious Disease Note Subjective Subjective Pt says feels much better Less drainage from surgical wound with pain. He denies any fever/chills/nausea/vomiting/sob/diarrhea/rash. Ready to go home Vital Sign Vital Signs Vital Signs Date Time Temp Pulse Resp B/P (MAP) Pulse Ox O2 Delivery O2 Flow Rate FiO2 06/16/19 08:56 86 116/81 06/16/19 08:36 96 Room Air 06/16/19 07:00 98.4 18 98.4 Physical Exam PHYSICAL EXAM GENERAL: On side of bed, alert, NAD HEENT: Oral cavity, pharynx is clear.Anicteric, no thrush NECK: Supple LUNGS: Clear to auscultation HEART: S1, S2. ABDOMEN: Morbidly obese, soft, no guarding, no rebound. Positive bowel sounds. Scrotal - Min erythema, no gross tenderness, incision is intact- small opening improved and less edema. area clean EXTREMITIES: No clubbing, cyanosis or gross edema. NEUROLOGIC: Alert, responds appropriately Labs Micro AEROBIC RES 1 Final Gram negative rods Comment 4+ Performed at: - [facility] [address], [place], [place] [id number] [place]: CARLTON Rowell MD, Phone: [phone] Enterobacter cloacae complex 4+ ANTIMICROBIAL SUSCEPTIBILITY Final Comment S = Susceptible; I = Intermediate; R = Resistant P = Positive; N = Negative MICS are expressed in micrograms per mL Antibiotic RSLT#1 RSLT#2 RSLT#3 RSLT#4 Amoxicillin/Clavulanic Acid R>=32 Cefazolin R>=64 Cefepime S =2 Cefuroxime R>=64 Ciprofloxacin S<=0.25 Gentamicin S<=1 Imipenem S<=0.25 Levofloxacin S<=0.12 Meropenem S<=0.25 Tetracycline S =2 Tobramycin S<=1 Trimethoprim/Sulfa S<=20 Microbiology 06/11/19 Aerobic Culture, Resulted Pending 06/11/19 Aerobic Culture Result 1 (ESTEBAN), Resulted Pending 06/11/19 Gram Stain - Final, Resulted 06/11/19 Gram Stain Result 1 (ESTEBAN) - Final, Resulted 06/11/19 Gram Stain Result 2 (ESTEBAN) - Final, Resulted 06/11/19 Blood Culture - Preliminary, Resulted NO GROWTH AFTER 2 DAYS Objective Assessment s/p recent hydrocoele surgery 3.5 weeks ago now with drainage from the scrotal incision site,likely underlying hematoma with mild superimposed infection - Enterobacter on gram stain 06/11. No anaerobes reported but not final no abscess on imaging Hydrocoele Diabetes. Plan Plan of residential on Cipro 500 mg po BID /Flagyl 500 mg po TID for 7 days. reviewed risks with tendons, AA - he understands and accepts risks Probiotics recommended F/u with and primary d/w rn KANE NO MD Jun 16, 2019 10:10
--- NOTE | 2019-06-16 14:01 | DS ---
DATE OF DISCHARGE: 06/16/2019 HOSPITAL SUMMARY: A 58-year-old white male recently discharged after postoperative scrotal infection from the hydrocele repair at the [facility]. He finished Zyvox and Septra and shortly after that, began having increasing pain and swelling. Chemistry profile showed mildly elevated blood sugars consistent with diabetes, GFR of 69 consistent with previous CKD 2, and a normal white count and urine. The blood was negative and the wound culture ultimately grew out Enterobacter cloacae resistant to Augmentin and sensitive to sulfa. Pelvic CT was unremarkable except for scrotal edema and swelling and previous left hydrocele and no fasciitis was seen. He was treated with IV Zyvox and Zosyn and clinically improve, and especially with the addition of topical Polysporin. Oral Septra will start this morning specific for the Enterobacter cloacae that were found on the culture and he is comfortable to be followed as an outpatient at this point. FINAL DIAGNOSES: 1. Cellulitis of the scrotum postoperative hydrocele repair. 2. Chronic kidney disease 2. 3. Type 2 diabetes mellitus. OPERATIONS, PROCEDURES, COMPLICATIONS: None. CONSULTATIONS: Dr. Gooden and Dr. Nolasco. DISPOSITION: Septra DS twice a day for 1 more week starting today. Home meds all remain the same. Office followup as needed if he have any sign of recurrent infection and he will use topical Polysporin 3 to 4 times a day on the wound until healed as well. PROGNOSIS: Good. DIANNA LENNON MD DR: RAYMOND/laine JOB#: [id number] / [id number]
== END 2019-06-16 11:20 | disposition home or self-care (01) | DRG 863 ==
LOC: ER 19:35 → 4 NORTH 22:29
PROVIDERS: ADMIT Family Medicine; ATTEND Family Medicine
PROC: 5A09357 Assistance with Respiratory Ventilation, Less than 24 Consecutive Hours, Continuous Positive Airway Pressure (ICD-10-PCS; principal; 2019-06-13)
PROC: 5A09357 Assistance with Respiratory Ventilation, Less than 24 Consecutive Hours, Continuous Positive Airway Pressure (ICD-10-PCS; 2019-06-14)
PROC: 5A09357 Assistance with Respiratory Ventilation, Less than 24 Consecutive Hours, Continuous Positive Airway Pressure (ICD-10-PCS; 2019-06-15)
PROC: 5A09357 Assistance with Respiratory Ventilation, Less than 24 Consecutive Hours, Continuous Positive Airway Pressure (ICD-10-PCS; 2019-06-16)
DX: T81.40XA Infection following a procedure, unspecified, initial encounter (principal); N17.9 Acute kidney failure, unspecified; N49.2 Inflammatory disorders of scrotum; E11.22 Type 2 diabetes mellitus with diabetic chronic kidney disease; E78.00 Pure hypercholesterolemia, unspecified; E78.5 Hyperlipidemia, unspecified; I12.9 Hypertensive chronic kidney disease with stage 1 through stage 4 chronic kidney disease, or unspecified chronic kidney disease; J43.9 Emphysema, unspecified; K21.9 Gastro-esophageal reflux disease without esophagitis; N18.2 Chronic kidney disease, stage 2 (mild); Z96.659 Presence of unspecified artificial knee joint; G89.29 Other chronic pain
CPT/HCPCS: 36415; 72193; 80048; 80053; 81001; 82565; 82962; 85007; 85025; 87040; 87070; 87186; 94640; 94660; 94760; 96361; 96365; 96368; 96375; J2405; J2543; J3010; J3370; J7030; J7040; J7613; J7626; 99285-25; G0378

== ENCOUNTER → 2019-09-14 | Outpatient (CLI) | payer MEDICARE ==
[~2019-09-14] MED LIST changes: -GLIM1TAB2 PO; +GLIM1TAB3 PO; +OMEP40CA45 PO; -OMEP40CA5 PO; +SIMV20TA18 PO; -SIMV20TA3 PO; +SPIR25TA5 PO
--- NOTE | 2019-09-14 14:45 | KCIC ---
EXAM: Right shoulder, 3 views. HISTORY: Pain. COMPARISON: None. FINDINGS: 3 views of the right shoulder obtained. There is no fracture, dislocation or subluxation. There is minimal marginal humeral head spurring. There is suspected bone island within the glenoid. There is a suspected calcified right upper lobe granuloma. IMPRESSION: 1. Minimal right glenohumeral osteoarthritis. 2. No acute osseous finding. Electronically signed by: Yenni Figueroa MD (09/14/2019 2:42 PM) [place] [id number]
== END | disposition home or self-care (01) ==
LOC: KCIC 10:59
PROVIDERS: ATTEND Family Medicine
DX: M19.011 Primary osteoarthritis, right shoulder (principal); I12.9 Hypertensive chronic kidney disease with stage 1 through stage 4 chronic kidney disease, or unspecified chronic kidney disease; E11.22 Type 2 diabetes mellitus with diabetic chronic kidney disease; N18.2 Chronic kidney disease, stage 2 (mild); K21.9 Gastro-esophageal reflux disease without esophagitis; E78.00 Pure hypercholesterolemia, unspecified; Z87.891 Personal history of nicotine dependence; Z90.49 Acquired absence of other specified parts of digestive tract
CPT/HCPCS: 73030

== ENCOUNTER → 2019-09-16 | Outpatient (CLI) | payer MEDICARE ==
--- NOTE | 2019-09-16 16:59 | KCIC ---
STUDY: MRI of the right shoulder without contrast INDICATION: Pain for the past month. Decreased range of motion. No known injury. COMPARISON: No prior MRI. TECHNIQUE: Multiplanar MR imaging of the right shoulder performed without the use of intravenous or intra-articular contrast. FINDINGS: AC joint: Moderate AC joint arthrosis. No significant fluid distention of the subacromial subdeltoid bursa. Rotator cuff: Supraspinatus and infraspinatus tendinosis without high-grade or full-thickness tear. The teres minor is unremarkable. The subscapularis is intact. Maintained rotator cuff musculature bulk. Labrum: Multifocal degenerative labral signal. No large paralabral cyst. Long head biceps tendon: Intra-articular long head biceps tendinosis seen as tendon thickening and heterogeneous signal such as on image 10 series 5. Cartilage: Potential chondral thinning at the medial humeral head at its lower aspect but difficult to evaluate. No large full-thickness defect is appreciated. Bones: Very heterogeneous marrow signal particularly on the T2 sequences. Partially visualized within the proximal humeral shaft is heterogeneous region of signal change within the intramedullary canal with a partial rim of fatty signal. The overlying cortex is normal. Degenerative cystic changes seen at the humeral head. Miscellaneous: No significant shoulder joint effusion. No pathologically enlarged axillary lymph nodes are identified. Impression: 1. Supraspinatus and infraspinatus tendinosis without high-grade or full-thickness tear. 2. Intra-articular long head biceps tendinosis. 3. Moderate AC joint arthrosis. 4. Very heterogeneous marrow signal particularly on the T2 sequences which could be related to red marrow reconversion and there is no cortical disruption or a discrete lesion with aggressive features. Electronically signed by: KRISTIAN VALENCIA MD (09/16/2019 4:56 PM) [facility]
== END | disposition home or self-care (01) ==
LOC: KCIC MRI 15:07
PROVIDERS: ATTEND Family Medicine
DX: M19.011 Primary osteoarthritis, right shoulder (principal)
CPT/HCPCS: 73221

== ENCOUNTER 2022-01-30 20:04 | Inpatient (IN) | payer MEDICARE ==
[~2022-01-30] VITALS: Ht 180.3 cm; Wt 95.6 kg
[~2022-01-30 20:04] MED LIST changes: +AMLO-187 PO; -AMLO10TA8 PO; -ASPI-612 PO; +ASPI-886 PO; -DOXY100C2 PO; +DOXY100C3 PO; -GLIM1TAB3 PO; +GLIM1TAB7 PO; -OMEP40CA45 PO; +OMEP40CA7 PO; +TIZA-75 PO; -TIZA4TAB2 PO
[2022-01-30] MEDS ORDERED: MORPHINE SULFATE 2 MG/ML INJ. IV/SQ PRN (20:45)
[2022-01-30 20:46] LABS: BASO # 0.1 x10^3/uL (0.0-0.2); BASO % 1 % (0-3); EOS # 0.2 x10^3/uL (0.0-0.7); EOS % 2 % (0-3); HEMATOCRIT 47.7 % (39.0-53.0); HEMOGLOBIN 16.7 g/dL (13.0-17.5); LYMPH # 1.7 x10^3/uL (1.0-4.8); LYMPH % 18 % (24-48); MEAN CORPUSCULAR HEMOGLOBIN 31 pg (25-35); MEAN CORPUSCULAR HGB CONC 35 g/dL (31-37); MEAN CORPUSCULAR VOLUME 88 fL (79-100); MONO # 0.5 x10^3/uL (0.0-1.1); MONO % 5 % (0-9); NEUT % 75 % (31-73); PLATELET COUNT 201 x10^3/uL (140-400); RED BLOOD COUNT 5.39 x10^6/uL (4.30-5.70); RED CELL DISTRIBUTION WIDTH 13.7 % (11.5-14.5); WHITE BLOOD COUNT 9.4 x10^3/uL (4.0-11.0)
[2022-01-30 21:02] LABS: CALCIUM 8.9 mg/dL (8.5-10.1); CREATININE 0.9 mg/dL (0.7-1.3); GFR 86.1; POTASSIUM 3.7 mmol/L (3.5-5.1)
--- NOTE | 2022-01-30 21:06 | RAD ---
Exam: Chest one view INDICATION: Syncope, pain TECHNIQUE: Frontal view of the chest Comparisons: 12/18/2018 FINDINGS: The cardiomediastinal silhouette and pulmonary vessels are within normal limits. The lung and pleural spaces are clear. IMPRESSION: No acute cardiopulmonary process. Electronically signed by: Louisa Dominguez MD (01/30/2022 9:04 PM) [facility]OLAN[facility]
[2022-01-30 21:08] LABS: ALBUMIN 3.8 g/dL (3.4-5.0); MAGNESIUM 1.7 mg/dL (1.8-2.4); TOTAL BILIRUBIN 0.4 mg/dL (0.2-1.0); TOTAL PROTEIN 7.6 g/dL (6.4-8.2)
[2022-01-30 21:34] LABS: BACTERIA,URINE 0 /HPF (0-FEW); RBC,URINE 0 /HPF (0-2); WBC,URINE 0 /HPF (0-4)
--- NOTE | 2022-01-30 22:09 | PHYS DOC ---
Past Medical History Past Medical History: COPD, Diabetes-Type II, GERD, High Cholesterol, Hypertension, Renal Disease, Other Additional Past Medical Histor: Chronic Kidney Disease, Sleep Apnea Past Surgical History: Cholecystectomy, Knee Replacement, Other Additional Past Surgical Histo: neck Smoking Status: Current Every Day Smoker Alcohol Use: None Drug Use: None General Adult EDM: Chief Complaint: SYNCOPE HPI: HPI: Patient is a 61 year old male with history of diabetes type 2, hypertension, high cholesterol, kidney disease, COPD, current smoker, presented to the ED today to be evaluated for syncope episode he experienced yesterday. He states he was out goat shopping yesterday in [facility], he states he had a syncope episode, EMS was called, his heart rate was 20 and he was taken to [facility]. He states he was evaluated there and he was noted to have left bundle branch block, he states he was discharged and asked to follow-up with his own PCP today. He called his PCP and he was instructed to come to the ED to be admitted. Patient reports several episodes of dizziness today. Denies any chest pain, shortness of breath. Review of Systems: Review of Systems: Constitutional: Denies fever or chills. [] Eyes: Denies change in visual acuity. [] HENT: Denies nasal congestion or sore throat. [] Respiratory: Denies cough or shortness of breath. [] Cardiovascular: Denies chest pain or edema. [] GI: Denies abdominal pain, nausea, vomiting, bloody stools or diarrhea. [] : Denies dysuria. [] Musculoskeletal: Denies back pain or joint pain. [] Integument: Denies rash. [] Neurologic: Reports syncope episode. Reports dizziness. Denies headache, focal weakness or sensory changes. [] Psychiatric: Denies depression or anxiety. [] Heart Score: C/O Chest Pain: N/A Risk Factors: Risk Factors: DM, Current or recent (<one month) smoker, HTN, HLP, family history of CAD, obesity. Risk Scores: Score 0 - 3: 2.5% MACE over next 6 weeks - Discharge Home Score 4 - 6: 20.3% MACE over next 6 weeks - Admit for Clinical Observation Score 7 - 10: 72.7% MACE over next 6 weeks - Early Invasive Strategies Current Medications: Current Medications Medications (Trade) Dose Ordered Sig/Elie Start Time Stop Time Status Last Admin Dose Admin Morphine Sulfate (Morphine Sulfate) 2 mg PRN Q15MIN PRN 01/30/22 20:45 01/31/22 20:44 Allergies: Allergies: Allergies Coded Allergies Type Severity Reaction Last Updated Verified No Known Drug Allergies 12/16/14 No Physical Exam: PE: Constitutional: Well developed, well nourished, no acute distress, non-toxic appearance. [] HENT: Normocephalic, atraumatic, bilateral external ears normal, oropharynx moist, no oral exudates, nose normal. [] Eyes: PERRLA, EOMI, conjunctiva normal, no discharge. [] Neck: Normal range of motion, no tenderness, supple, no stridor. [] Cardiovascular:Heart rate regular rhythm, no murmur [] Lungs & Thorax: Bilateral breath sounds clear to auscultation [] Abdomen: Bowel sounds normal, soft, no tenderness, no masses, no pulsatile masses. [] Skin: Warm, dry, no erythema, no rash. [] Back: No tenderness, no CVA tenderness. [] Extremities: No tenderness, no cyanosis, no clubbing, ROM intact, no edema. [] Neurologic: Alert and oriented X 3, normal motor function, normal sensory funct ion, no focal deficits noted. [] Psychologic: Affect normal, judgement normal, mood normal. [] Current Patient Data: Labs: Laboratory Tests Test 01/30/22 20:36 01/30/22 21:20 White Blood Count 9.4 x10^3/uL (4.0-11.0) Red Blood Count 5.39 x10^6/uL (4.30-5.70) Hemoglobin 16.7 g/dL (13.0-17.5) Hematocrit 47.7 % (39.0-53.0) Mean Corpuscular Volume 88 fL (79-100) Mean Corpuscular Hemoglobin 31 pg (25-35) Mean Corpuscular Hemoglobin Concent 35 g/dL (31-37) Red Cell Distribution Width 13.7 % (11.5-14.5) Platelet Count 201 x10^3/uL (140-400) Neutrophils (%) (Auto) 75 % (31-73) H Lymphocytes (%) (Auto) 18 % (24-48) L Monocytes (%) (Auto) 5 % (0-9) Eosinophils (%) (Auto) 2 % (0-3) Basophils (%) (Auto) 1 % (0-3) Neutrophils # (Auto) 7.0 x10^3/uL (1.8-7.7) Lymphocytes # (Auto) 1.7 x10^3/uL (1.0-4.8) Monocytes # (Auto) 0.5 x10^3/uL (0.0-1.1) Eosinophils # (Auto) 0.2 x10^3/uL (0.0-0.7) Basophils # (Auto) 0.1 x10^3/uL (0.0-0.2) Sodium Level 137 mmol/L (136-145) Potassium Level 3.7 mmol/L (3.5-5.1) Chloride Level 101 mmol/L (98-107) Carbon Dioxide Level 27 mmol/L (21-32) Anion Gap 9 (6-14) Blood Urea Nitrogen 10 mg/dL (8-26) Creatinine 0.9 mg/dL (0.7-1.3) Estimated GFR (Cockcroft-Gault) 86.1 BUN/Creatinine Ratio 11 (6-20) Glucose Level 203 mg/dL (70-99) H Calcium Level 8.9 mg/dL (8.5-10.1) Magnesium Level 1.7 mg/dL (1.8-2.4) L Total Bilirubin 0.4 mg/dL (0.2-1.0) Aspartate Amino Transferase (AST) 14 U/L (15-37) L Alanine Aminotransferase (ALT) 39 U/L (16-63) Alkaline Phosphatase 86 U/L (46-116) Troponin I High Sensitivity 14 ng/L (4-75) RC-Ftj-P-Type Natriuretic Peptide 220 pg/mL (0-124) H Total Protein 7.6 g/dL (6.4-8.2) Albumin 3.8 g/dL (3.4-5.0) Albumin/Globulin Ratio 1.0 (1.0-1.7) Urine Collection Type Unknown Urine Color (Auto) Colorless Urine Turbidity Clear Urine pH (Auto) 6.0 (<5.0-8.0) Urine Specific [place] 1.005 (1.000-1.030) Urine Protein (Auto) Negative mg/dL (Negative) Urine Glucose (Auto)(UA) Negative mg/dL (Negative) Urine Ketones (Auto) Negative mg/dL (Negative) Urine Blood (Auto) Negative (Negative) Urine Nitrite Negative (Negative) Urine Bilirubin (Auto) Negative (Negative) Urine Urobilinogen (Auto) Normal mg/dL (Normal) Urine Leukocyte Esterase (Auto) Negative (Negative) Urine RBC 0 /HPF (0-2) Urine WBC 0 /HPF (0-4) Urine Squamous Epithelial Cells Occ /LPF Urine Bacteria 0 /HPF (0-FEW) Urine Mucus Slight /LPF Laboratory Tests 01/30/22 20:36 Laboratory Tests 01/30/22 20:36 Vital Signs: Vital Signs Date Time Temp Pulse Resp B/P (MAP) Pulse Ox O2 Delivery O2 Flow Rate FiO2 01/30/22 21:30 81 19 117/68 (84) 94 01/30/22 20:10 98.5 Room Air 98.5 EKG: EK interpreted by Dr. Mantilla sinus rhythm with LBBB HR 79 no STEMI[] Radiology/Procedures: Radiology/Procedures: []PROCEDURE: PORTABLE CHEST 1V Exam: Chest one view INDICATION: Syncope, pain TECHNIQUE: Frontal view of the chest Comparisons: 12/18/2018 FINDINGS: The cardiomediastinal silhouette and pulmonary vessels are within normal limits. The lung and pleural spaces are clear. IMPRESSION: No acute cardiopulmonary process. Electronically signed by: Louisa Figueroa MD (01/30/2022 9:04 PM) [facility] DICTATED and SIGNED BY: LOUISA FIGUEROA MD DATE: 01/30/222102 Course & Med Decision Making: Course & Med Decision Making Pertinent Labs and Imaging studies reviewed. (See chart for details) This is a 61-year-old male patient presented to the ED today to be evaluated after having a syncope episode yesterday in [facility]. He reports his heart rate was 20, he was evaluated at an ED there and was discharged with dx of LBBB. He called his PCP today and they requested him to come to the ED to be evaluated. vitals on arrival temperature 98.5, heart rate 71, respiration 20 on room air, O2 sats 96% on room air, blood pressure 100/71 EKG noted for left LBBB, CBC with no acute findings, CMP with glucose of 203, first high-sensitivity troponin is negative Spoke with Dr. Lennon who accepted patient for admission Routine consult placed for project manager Arthur Disclaimer: Arthur Disclaimer: This electronic medical record was generated, in whole or in part, using a voice recognition dictation system. Departure Departure Impression: Primary Impression: Syncope Qualified Codes: R55 - Syncope and collapse Additional Impressions: Hyperglycemia Smoking addiction Disposition: ADMITTED INPATIENT Condition: STABLE Referrals: DIANNA LENNON MD (PCP) FERNANDO YU NETWORK ENGINEERING ADVISOR January 30, 2022 22:09
[2022-01-30] MEDS ORDERED: MORPHINE SULFATE 4 MG/ML INJ. IVP PRN (22:15)
[2022-01-30] MEDS ORDERED: ONDANSETRON PF 4 MG/2 ML VIAL. IVP PRN (22:15)
[2022-01-31] VITALS (9 sets, daily range): BP systolic 104–142; BP diastolic 66–76
[2022-01-31 04:08] LABS: BASO % 1 % (0-3); EOS # 0.2 x10^3/uL (0.0-0.7); EOS % 2 % (0-3); HEMATOCRIT 44.4 % (39.0-53.0); HEMOGLOBIN 15.7 g/dL (13.0-17.5); LYMPH # 1.9 x10^3/uL (1.0-4.8); LYMPH % 23 % (24-48); MEAN CORPUSCULAR HEMOGLOBIN 31 pg (25-35); MEAN CORPUSCULAR HGB CONC 35 g/dL (31-37); MEAN CORPUSCULAR VOLUME 89 fL (79-100); MONO # 0.5 x10^3/uL (0.0-1.1); MONO % 6 % (0-9); NEUT # 5.7 x10^3/uL (1.8-7.7); NEUT % 69 % (31-73); PLATELET COUNT 173 x10^3/uL (140-400); RED BLOOD COUNT 5.01 x10^6/uL (4.30-5.70); RED CELL DISTRIBUTION WIDTH 13.9 % (11.5-14.5); WHITE BLOOD COUNT 8.3 x10^3/uL (4.0-11.0)
[2022-01-31 04:31] LABS: ALBUMIN 3.5 g/dL (3.4-5.0); ALBUMIN/GLOBULIN RATIO 1.1 (1.0-1.7); CALCIUM 8.9 mg/dL (8.5-10.1); CREATININE 0.9 mg/dL (0.7-1.3); GFR 86.1; POTASSIUM 3.9 mmol/L (3.5-5.1); TOTAL BILIRUBIN 0.4 mg/dL (0.2-1.0); TOTAL PROTEIN 6.7 g/dL (6.4-8.2)
--- NOTE | 2022-01-31 07:34 | EKG ---
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
--- NOTE | 2022-01-31 08:02 | PDOC ---
Provider Note Date of Service: DATE: 01/31/22 TIME: 07:58 Provider Note [id number] Justifications for Admission Other Justification DIANNA LENNON MD January 31, 2022 08:02
[2022-01-31] MEDS ORDERED: ALBUTEROL SULFATE 2.5 MG/3 ML NEBU. INH PRN (08:15)
[2022-01-31] MEDS ORDERED: HYDROcodone/APAP 10/325 1 TAB TABLET PO PRN (08:15)
[2022-01-31] MEDS: metFORMIN 500 MG TABLET PO SCH ×2 (08:44→17:34)
[2022-01-31] MEDS: SPIRONOLACTONE 25 MG TABLET PO SCH (08:45)
[2022-01-31] MEDS: GLIMEPIRIDE 2 MG TABLET. PO SCH (08:45)
[2022-01-31] MEDS ORDERED: LISINOPRIL 20 MG TABLET PO SCH (09:00)
[2022-01-31] MEDS ORDERED: hydroCHLOROthiazide 25 MG TABLET PO SCH (09:00)
[2022-01-31] MEDS: ALBUTEROL SULFATE 2.5 MG/3 ML NEBU. NEB SCH ×4 (09:00→20:21)
--- NOTE | 2022-01-31 09:12 | PDOC2 ---
CARDIAC CONSULT DATE OF CONSULT Date of Consult DATE: 01/31/22 TIME: 09:00 REASON FOR CONSULT Reason for Consult: Syncope, new LBBB REFERRING PHYSICIAN Referring Physician: Meron SOURCE Source: Chart review, Patient HISTORY OF PRESENT ILLNESS HISTORY OF PRESENT ILLNESS This is a 61 yo male admitted for complains of passing out. Reports that he was goat shopping yesterday. he was holding a baby goat and set it down stood up and then he started falling backwards. No trauma. His told him that he rolled his eyes backward. No seizure episodes. Denies any presyncopal symptoms. No hypoglycemic symptoms. Denies any chest pain, palpitations, SOA, nausea at that time per and post fall. He has had syncopal spells in the past one last yr and back in 2019. He has had an MCOT which did not reveal any arrhythmias in 2019. However her LBBB is new. When EMS arrived he was told that HR was in the 20s but no noted report of mes being used to help with his HR. He was then taken to [facility] and was noted with LBBB which is new for him hence he was transferred here. Denies frequent dizziness or vertigo for me and no recent syncopal spell. No fever or chills and no diarrhea. He did not skip his meals t day and reports being well hydrated. He does not do much heavy exertion since he got a riding mower. A month ago when he was still push mowing he gets and also has some chest tightness. PAST MEDICAL HISTORY Cardiovascular: HTN, Syncope, Hyperlipidemia Pulmonary: COPD, Other (DILLON) Heme/Onc: No pertinent hx Hepatobiliary: Hep A/B/C (B) Musculoskeletal: Osteoarthritis, Other (right RTC tear, adhesive capsulitis) Rheumatologic: No pertinent hx Infectious disease: No pertinent hx ENT: No pertinent hx Renal/: Chronic renal insuff Endocrine: Diabetes Dermatology: No pertinent hx PAST SURGICAL HISTORY Past Surgical History: Arthroscopy (right knee), Cholecystectomy, Other (neck surgery) FAMILY HISTORY Family History: Coronary Artery Disease (father) SOCIAL HISTORY Smoke: <1 pack per day ALCOHOL: none Drugs: None Lives: with Family CURRENT MEDICATIONS CURRENT MEDICATIONS Current Medications Medications (Trade) Dose Ordered Sig/Elie Route PRN Reason Start Time Stop Time Status Last Admin Dose Admin Amlodipine Besylate (Norvasc) 10 mg DAILY PO 5/5/22 09:00 01/31/22 08:46 Hydrochlorothiazide (Hydrodiuril) 25 mg DAILY PO 01/31/22 09:00 01/31/22 08:44 Metformin HCl (Glucophage) 1,000 mg BIDWMEALS PO 01/31/22 09:00 01/31/22 08:44 Spironolactone (Aldactone) 25 mg DAILY PO 01/31/22 09:00 01/31/22 08:45 Glimepiride (Amaryl) 2 mg DAILY PO 01/31/22 09:00 01/31/22 08:45 ALLERGIES ALLERGIES: Coded Allergies: No Known Drug Allergies (Unverified , 12/16/14) ROS Review of System 14 point ROS evaluated with pertinent positives noted per HPI PHYSICAL EXAM General: Alert, Oriented X3, Cooperative, No acute distress HEENT: Atraumatic, Mucous membr. moist/pink Lungs: Clear to auscultation, Normal air movement Heart: Regular rate (SR), Normal S1, Normal S2, No murmurs Abdomen: Soft, No tenderness Extremities: No cyanosis, No edema Skin: No breakdown, No significant lesion Neuro: Normal speech, Sensation intact Psych/Mental Status: Mental status NL, Mood NL MUSCULOSKELETAL: Osteoarthritic changes both hands VITALS/I&O VITALS/I&O: Vital Signs Date Time Temp Pulse Resp B/P (MAP) Pulse Ox O2 Delivery O2 Flow Rate FiO2 01/31/22 08:46 76 115/66 01/31/22 08:00 Room Air 01/31/22 03:00 98.1 18 92 98.1 I & O 01/30/22 01/30/22 01/31/22 15:00 23:00 07:00 Intake Total 50 ml Balance 50 ml LABS Lab: Laboratory Tests Test 01/30/22 20:36 01/30/22 21:20 01/30/22 23:40 01/31/22 02:50 White Blood Count 9.4 x10^3/uL (4.0-11.0) 8.3 x10^3/uL (4.0-11.0) Red Blood Count 5.39 x10^6/uL (4.30-5.70) 5.01 x10^6/uL (4.30-5.70) Hemoglobin 16.7 g/dL (13.0-17.5) 15.7 g/dL (13.0-17.5) Hematocrit 47.7 % (39.0-53.0) 44.4 % (39.0-53.0) Mean Corpuscular Volume 88 fL (79-100) 89 fL (79-100) Mean Corpuscular Hemoglobin 31 pg (25-35) 31 pg (25-35) Mean Corpuscular Hemoglobin Concent 35 g/dL (31-37) 35 g/dL (31-37) Red Cell Distribution Width 13.7 % (11.5-14.5) 13.9 % (11.5-14.5) Platelet Count 201 x10^3/uL (140-400) 173 x10^3/uL (140-400) Neutrophils (%) (Auto) 75 % (31-73) H 69 % (31-73) Lymphocytes (%) (Auto) 18 % (24-48) L 23 % (24-48) L Monocytes (%) (Auto) 5 % (0-9) 6 % (0-9) Eosinophils (%) (Auto) 2 % (0-3) 2 % (0-3) Basophils (%) (Auto) 1 % (0-3) 1 % (0-3) Neutrophils # (Auto) 7.0 x10^3/uL (1.8-7.7) 5.7 x10^3/uL (1.8-7.7) Lymphocytes # (Auto) 1.7 x10^3/uL (1.0-4.8) 1.9 x10^3/uL (1.0-4.8) Monocytes # (Auto) 0.5 x10^3/uL (0.0-1.1) 0.5 x10^3/uL (0.0-1.1) Eosinophils # (Auto) 0.2 x10^3/uL (0.0-0.7) 0.2 x10^3/uL (0.0-0.7) Basophils # (Auto) 0.1 x10^3/uL (0.0-0.2) 0.0 x10^3/uL (0.0-0.2) Sodium Level 137 mmol/L (136-145) 141 mmol/L (136-145) Potassium Level 3.7 mmol/L (3.5-5.1) 3.9 mmol/L (3.5-5.1) Chloride Level 101 mmol/L (98-107) 103 mmol/L (98-107) Carbon Dioxide Level 27 mmol/L (21-32) 31 mmol/L (21-32) Anion Gap 9 (6-14) 7 (6-14) Blood Urea Nitrogen 10 mg/dL (8-26) 12 mg/dL (8-26) Creatinine 0.9 mg/dL (0.7-1.3) 0.9 mg/dL (0.7-1.3) Estimated GFR (Cockcroft-Gault) 86.1 86.1 BUN/Creatinine Ratio 11 (6-20) 13 (6-20) Glucose Level 203 mg/dL (70-99) H 128 mg/dL (70-99) H Calcium Level 8.9 mg/dL (8.5-10.1) 8.9 mg/dL (8.5-10.1) Magnesium Level 1.7 mg/dL (1.8-2.4) L Total Bilirubin 0.4 mg/dL (0.2-1.0) 0.4 mg/dL (0.2-1.0) Aspartate Amino Transferase (AST) 14 U/L (15-37) L 14 U/L (15-37) L Alanine Aminotransferase (ALT) 39 U/L (16-63) 35 U/L (16-63) Alkaline Phosphatase 86 U/L (46-116) 78 U/L (46-116) Troponin I High Sensitivity 14 ng/L (4-75) 16 ng/L (4-75) 15 ng/L (4-75) QA-Iwa-M-Type Natriuretic Peptide 220 pg/mL (0-124) H Total Protein 7.6 g/dL (6.4-8.2) 6.7 g/dL (6.4-8.2) Albumin 3.8 g/dL (3.4-5.0) 3.5 g/dL (3.4-5.0) Albumin/Globulin Ratio 1.0 (1.0-1.7) 1.1 (1.0-1.7) Urine Collection Type Unknown Urine Color (Auto) Colorless Urine Turbidity Clear Urine pH (Auto) 6.0 (<5.0-8.0) Urine Specific Filley 1.005 (1.000-1.030) Urine Protein (Auto) Negative mg/dL (Negative) Urine Glucose (Auto)(UA) Negative mg/dL (Negative) Urine Ketones (Auto) Negative mg/dL (Negative) Urine Blood (Auto) Negative (Negative) Urine Nitrite Negative (Negative) Urine Bilirubin (Auto) Negative (Negative) Urine Urobilinogen (Auto) Normal mg/dL (Normal) Urine Leukocyte Esterase (Auto) Negative (Negative) Urine RBC 0 /HPF (0-2) Urine WBC 0 /HPF (0-4) Urine Squamous Epithelial Cells Occ /LPF Urine Bacteria 0 /HPF (0-FEW) Urine Mucus Slight /LPF Test 01/31/22 07:29 Glucose (Fingerstick) 137 mg/dL (70-99) H Laboratory Tests 01/30/22 20:36 01/31/22 02:50 Laboratory Tests 01/30/22 20:36 01/31/22 02:50 ASSESSMENT/PLAN ASSESSMENT/PLAN 1. Syncope with nontraumatic fall. Could not ascertain hypoglycemia. neg for CSH. Possible bradyarrhythmia. Reported EMS noted his HR in the 20s 2. LBBB: new finding 3. HTN 4. HLP 5. DM2 6. COPD with continued tobaccoism Recommendations 1. TTE. FLP, Head CT and carotid doppler 2. No bradycardia episodes overnight maintaining SR. Will arrange for outpt loop recorder 3. Outpt MPI pending TTE result 4. Continue secondary prevention measures. Will try to obtain EMS rhythm strip for review 5. Check orthostasis WU FARLEY APRN January 31, 2022 09:12
[2022-01-31 09:37] LABS: CHOLESTEROL/HDL RATIO 3.4
--- NOTE | 2022-01-31 09:50 | HP ---
DATE OF SERVICE: 01/31/2022 ADMIT DATE: 01/30/2022 CHIEF COMPLAINT: Syncopal episodes. HISTORY OF PRESENT ILLNESS: This 61-year-old white male has a history of tobacco use, chronic nonmalignant pain, controlled diabetes and apparently 3-4 days ago had an episode of syncope while out in [place]. He did not fall or have dizziness and there was no seizure-like activity and he has limited recall of the events until he was in the ambulance. He was taken to the ER, and en route there, he was told his heart rate was in the 20s. This resolved spontaneously and aside from a left bundle branch block, which is of unknown duration, EKG was unremarkable. He was discharged home and called me last night, and because of the serious nature of the syncope, likely related to intermittent third-degree heart block, he is admitted for further monitoring and consideration of pacemaker placement. He takes no meds that would contribute to bradycardia at this time. PAST MEDICAL HISTORY: No allergies are known. His diabetes is well controlled on multiple medications, takes hydrocodone for chronic pain. SOCIAL HISTORY: Still a smoker, about half pack a day. He denies alcohol use. He is employed. He is . FAMILY HISTORY: Unremarkable. REVIEW OF SYSTEMS: No other complaints. OBJECTIVE: ENT: All within normal limits. NECK: No masses, nodes or bruits. LUNGS: Clear. CARDIOVASCULAR: Regular rate. No irregular beat or murmur at this time. Rates in the 70s. ABDOMEN: Soft, obese, benign, nontender. EXTREMITIES: Reasonably good pedal and radial pulses, 1+ clubbing. No joint or skin lesions are noted. NEUROLOGIC: Physiologic and nonfocal. LABORATORY STUDIES: Unremarkable. ASSESSMENT: Episodes of syncope that could well be related to severe bradycardia. He appears to be in sinus rhythm now with left bundle branch block, but was told his heart rate was 20 recently though no EKG was apparently obtained during that duration. PLAN: Monitoring. Cardiovascular evaluation for consideration of pacemaker placement tested. There is no other explanation for syncope appears to be present at this time. Echocardiogram is pending. RAYMOND/NADIYA/JEROD DR: Grayson TID: [id number]
[2022-01-31] MEDS ORDERED: PERFLUTREN PROTEIN-A MICROSPHR 0.22 MG/ML 3 ML VIAL. IVP ONE ×2 (10:45→11:48)
[2022-01-31] MEDS: BUDESONIDE 0.5 MG/2 ML NEBU. NEB SCH ×2 (11:01→20:20)
--- NOTE | 2022-01-31 11:45 | RAD ---
CT HEAD WITHOUT CONTRAST 01/31/2022 10:53 AM Indication: Fall, syncope: Comparison: CT head December 18, 2018 Procedure: Multidetector CT imaging of the head was performed without the administration of contrast. Findings: There is no evidence of acute intracranial hemorrhage. There is no evidence of acute territ orial infarction. Please note that CT is limited for evaluation of acute ischemia. No mass effect or midline shift is identified . The ventricles and basilar cisterns have an appropriate appearance. No abnormal extra-axial fluid collections are seen. No acute osseous changes are identified. Impression: No evidence of acute intracranial abnormality CT DOSING PQRS STATEMENT: One or more of the following individualized dose reduction techniques were utilized for this examinat ion: 1. Automated exposure control 2. Adjustment of the mA and/or kV according to patient size 3. Use of iterative reconstruction technique Electronically signed by: Von Parkinson MD (01/31/2022 11:43 AM) [id number]
[2022-01-31] MEDS: MAGNESIUM OXIDE 400 MG TABLET PO SCH (12:09)
--- NOTE | 2022-01-31 15:33 | RAD ---
MR#: [id number] Date of Study: 01/31/2022 Ordering Physician: WU FARLEY, Referring Physician: Marcia CAMARGO: JOSE MERCADO APPROVED REPORT Patient Location: IN-PATIENT Laterality:Bilateral Indications Syncope syncope/ fall Doppler Spectral Velocity Analysis Right Left pCCA 75/12 cm/spCCA 129/21 cm/s mCCA 72/16 cm/smCCA 103/21 cm/s dCCA 73/15 cm/sdCCA 70/11 cm/s Bulb 50/8 cm/sBulb 56/13 cm/s ECA 68/11 cm/sECA 68/10 cm/s pICA 42/15 cm/spICA 37/17 cm/s Ruddy 44/15 cm/smICA 42/13 cm/s dICA 56/20 cm/sdICA 68/10 cm/s Vert. Vert. 31/9 cm/s ICA/CCA 0.75ICA/CCA 0.53 Findings Grayscale images the bilateral carotid vessels demonstrates mild diffuse intimal hyperplasia and athe rosclerotic plaque. No significant obstructive plaque is noted. Spectral waveforms and color Dopple r are grossly within normal limits with 0 to less than 50% stenosis based on velocity criteria in the bilateral internal carotid arteries. The right vertebral artery was not well visualized. Antegrade vertebral velocities on the left side. Critical Notification Critical Value: No <Conclusion> 1. No significant carotid occlusive disease bilaterally 2. Nonvisualized right vertebral artery, cannot rule out occlusion Signed by : Gray Eubanks, Electronically Approved : 01/31/2022 15:32:49
--- NOTE | 2022-01-31 15:35 | NUR ---
SS following for discharge planning. SS reviewed pt chart and discussed with pt RN. Pt is from home with spouse and is currently on room air. Cardiology following. SS will continue to follow for discharge planning.
[2022-01-31] MEDS: LISINOPRIL 20 MG TABLET PO SCH (15:48)
--- NOTE | 2022-01-31 17:37 | CARD ---
MR#: [id number] Date of Study: 01/31/2022 Ordering Physician: WU FARLEY, Referring Physician: WU FARLEY Tech: Edita Hirsch [facility] APPROVED REPORT EXAM: Two-dimensional and M-mode echocardiogram with Doppler and color Doppler. Other Information Quality : Technically LimitedHR: 80bpm Rhythm : NSR INDICATION COPD Dyspnea Syncope Echo Enhancing Agent Indication: Endocardial border delineation Agent/Amount Used: Optison 3mL RISK FACTORS Hypertension Hyperlipidemia Smoking 2D DIMENSIONS RVDd4.1 (2.9-3.5cm)Left Atrium(2D)3.8 (1.6-4.0cm) IVSd1.5 (0.7-1.1cm)Aortic Root(2D)3.6 (2.0-3.7cm) LVDd4.5 (3.9-5.9cm)LVOT Diameter2.8 (1.8-2.4cm) PWd1.3 (0.7-1.1cm)LVDs2.4 (2.5-4.0cm) FS (%) 47.1 %SV74.4 ml Aortic Valve AoV Peak Tomi.206.6cm/sAoV VTI34.0cm AO Peak GR.17.1mmHgLVOT Peak Tomi.169.8cm/s AO Mean GR.10mmHgAVA (VMAX)5.10cm2 Mitral Valve MV E Opxzaeyr994.8cm/sMV DECEL [id number] MV A Gpllriyv19.2cm/sE/A Ratio1.9 Pulmonary Valve PV Peak Zzvdltct485.2cm/s Tricuspid Valve TR P. Rowyhqhc683lr/sTR Peak Gr.33mmHg LEFT VENTRICLE The left ventricle is normal size. There is mild concentric left ventricular hypertrophy. The left ve ntricular systolic function is normal. LV ejection fraction is 55 to 60%. There is normal LV segmenta l wall motion. RIGHT VENTRICLE The right ventricle is normal size. There is normal right ventricular wall thickness. The right ventr icular systolic function is normal. ATRIA The left atrium size is normal. The right atrium size is normal. The interatrial septum is intact wit h no evidence for an atrial septal defect or patent foramen ovale as noted on 2-D or Doppler imaging. AORTIC VALVE The aortic valve is normal in structure and function. Doppler and Color Flow revealed no significant aortic regurgitation. There is no significant aortic valvular stenosis. MITRAL VALVE The mitral valve is normal in structure and function. There is no evidence of mitral valve prolapse. There is no mitral valve stenosis. Doppler and Color Flow revealed no mitral valve regurgitation note d. TRICUSPID VALVE The tricuspid valve is normal in structure and function. Doppler and Color Flow revealed trace to mil d tricuspid regurgitation. Estimated PAP 30-35 mmHg. There is no tricuspid valve stenosis. PULMONIC VALVE The pulmonary valve is normal in structure and function. Doppler and Color Flow revealed no pulmonic valvular regurgitation. GREAT VESSELS The aortic root is normal in size. The ascending aorta is normal in size. The IVC is normal in size a nd collapses >50% with inspiration. PERICARDIAL EFFUSION There is no evidence of significant pericardial effusion. Critical Notification Critical Value: No <Conclusion> The left ventricle is normal size. The left ventricular systolic function is normal. LV ejection fraction is 55 to 60%. There is mild concentric left ventricular hypertrophy. Doppler and Color Flow revealed no significant aortic regurgitation. There is no significant aortic valvular stenosis. Doppler and Color Flow revealed no mitral valve regurgitation noted. Doppler and Color Flow revealed trace to mild tricuspid regurgitation. Estimated PAP 30-35 mmHg. Signed by : Yazan Phillips MD Electronically Approved : 01/31/2022 17:36:53
[2022-01-31] MEDS ORDERED: ATORVASTATIN CALCIUM 40 MG TABLET. PO SCH (21:00)
[2022-02-01 02:55] VITALS: BP 98/58
[2022-02-01 07:00] VITALS: BP 101/62
[2022-02-01] MEDS: BUDESONIDE 0.5 MG/2 ML NEBU. NEB SCH (07:33)
[2022-02-01] MEDS: ALBUTEROL SULFATE 2.5 MG/3 ML NEBU. NEB SCH (07:33)
[2022-02-01] MEDS: GLIMEPIRIDE 2 MG TABLET. PO SCH (08:28)
[2022-02-01 08:30] VITALS: BP 98/58
[2022-02-01] MEDS: LISINOPRIL 20 MG TABLET PO SCH (08:30)
[2022-02-01] MEDS: metFORMIN 500 MG TABLET PO SCH (08:30)
[2022-02-01] MEDS: SPIRONOLACTONE 25 MG TABLET PO SCH (08:30)
[2022-02-01] MEDS: MAGNESIUM OXIDE 400 MG TABLET PO SCH (08:30)
[2022-02-01] MEDS ORDERED: hydroCHLOROthiazide 12.5 MG TABLET PO SCH (09:00)
--- NOTE | 2022-02-01 10:23 | NUR ---
Discharge Note: ADOLFO TAM Discharge instructions and discharge home medications reviewed with Patient and a copy given. All questions have been answered and understanding verbalized. The following instructions and handouts were given: Alan davisw lisa appt and OP stress test Discontinued lines and drains: Removed playground monitor and IV Patient discharged to home
--- NOTE | 2022-02-01 23:39 | DS ---
DATE OF DISCHARGE: 02/01/2022 HOSPITAL SUMMARY: The patient I see regularly for various medical problems. He had an episode of overt syncope the day prior to admission. He was found to have a heart rate in the 20s in the field. He was taken to the [facility] and evaluated there. He was discharged. His heart rate was normal and he was there and no other abnormalities were found and he was told to see a equity director. He has had no recent syncopal episodes or any seizure activity, headache, chest pain or any other suspicious symptoms found. No new medications. New medications relieve slow heart rate. All laboratory studies were within normal limits as were CBC, chemistry profile, TSH, lipid profile and diabetic control. He as an outpatient has been cleared. CT head was normal. Chest x-ray was clear. Echocardiogram showed a good ejection fraction with no significant valvular disease. EKG shows left bundle-branch block, which apparently is preexisting. He was evaluated by Cardiology during hospital stay and had no bradycardic events or any arrhythmias. He will see them as an outpatient and have an event recorder placed intravenously to further symptomatic bradycardia and the need for possible pacemaker implantation. FINAL DIAGNOSES: 1. Syncopal episode, etiology undetermined. 2. History of severe bradycardia, etiology undetermined. 3. Chronic tobacco abuse. 4. Well-controlled type 2 diabetes mellitus. OPERATIONS, PROCEDURES, AND COMPLICATIONS: None. CONSULTATION: Dr. Gregor boggs. DISPOSITION: All medicines remain the same. Activity as tolerated. Complete tobacco avoidance encouraged and will see the equity director for outpatient event recorder placement. He is aware of the chance for recurrent syncopal episode if bradycardia recurs and the small real chance of sudden from severe arrhythmia due to his left bundle branch block. LUCAS DR: Grayson TID: [id number]
== END 2022-02-01 10:10 | disposition home or self-care (01) | DRG 312 ==
LOC: ER 20:04 → 6 SOUTH 21:23
PROVIDERS: ADMIT Family Medicine; ATTEND Family Medicine
DX: R55 Syncope and collapse (principal); I12.9 Hypertensive chronic kidney disease with stage 1 through stage 4 chronic kidney disease, or unspecified chronic kidney disease; E11.22 Type 2 diabetes mellitus with diabetic chronic kidney disease; E78.00 Pure hypercholesterolemia, unspecified; E78.5 Hyperlipidemia, unspecified; F17.210 Nicotine dependence, cigarettes, uncomplicated; I44.7 Left bundle-branch block, unspecified; J44.9 Chronic obstructive pulmonary disease, unspecified; N18.9 Chronic kidney disease, unspecified; Z82.49 Family history of ischemic heart disease and other diseases of the circulatory system; Z96.659 Presence of unspecified artificial knee joint; G89.29 Other chronic pain; K21.9 Gastro-esophageal reflux disease without esophagitis; M19.90 Unspecified osteoarthritis, unspecified site; Z90.49 Acquired absence of other specified parts of digestive tract; R00.1 Bradycardia, unspecified
CPT/HCPCS: 99285; C8929; 36415; 70450; 71045; 80053; 80061; 81001; 82962; 83735; 83880; 84443; 84484; 85025; 93005; 93880; 94640; Q9956; G0378; J7613; J7626

== ENCOUNTER 2022-02-18 08:31 | Outpatient (CLI) | payer MEDICARE ==
[~2022-02-18] VITALS: Ht 180.3 cm; Wt 97.2 kg
[2022-02-18] MEDS ORDERED: LIDOCAINE 2%/EPI 1:100,000 20 ML VIAL. IJ ONE (08:45)
[2022-02-18] MEDS ORDERED: ASPI-630 PO (08:46)
[2022-02-18] MEDS ORDERED: OLOD4MIS2 IH (08:46)
[2022-02-18] MEDS ORDERED: SEMA0.25 SQ (08:46)
[2022-02-18 08:52] VITALS: BP 142/80
[2022-02-18] MEDS ORDERED: LIDOCAINE 2%/EPI 1:100,000 20 ML VIAL. ONE (09:13)
[2022-02-18 09:25] VITALS: BP 141/66
--- NOTE | 2022-02-18 09:32 | CARD ---
MR#: [id number] Date of Study: 02/18/2022 Ordering Physician: CHRIS ORONA, Referring Physician: CHRIS ORONA, Tech: APPROVED REPORT EXAM Implantation of Medtronic reveal Linq loop recorder INDICATIONS Syncope of uncertain etiology EXPLANTED DEVICES An informed consent was obtained from patient. Patient was brought to the procedure suite and her le ft chest and shoulder were prepped and draped in the usual fashion. 20 mL of 2% lidocaine was infilt rated into the skin and subcutaneous tissues for local anesthesia. An incision was made in the left third intercostal space 1 inch from midsternal line and using the introducer and deployer provided wi th the kit a Medtronic Reveal Linq loop recorder serial number [id number] was placed in the subcutane ous tissue. Hemostasis was secured. Patient tolerated the procedure well. There were no immediate complications. CONCLUSION Successful implantation of Medtronic reveal Linq loop recorder for syncope of uncertain etiology Signed by : Chris Orona, Electronically Approved : 02/18/2022 09:32:21
--- NOTE | 2022-02-18 09:35 | NUR ---
Discharge Note: ADOLFO TAM Discharge instructions and discharge home medications reviewed with Patient and a copy given. All questions have been answered and understanding verbalized. The following instructions and handouts were given: incision site care and Medtronic device information Dressing to chest dry and intact. Patient discharged to Home or Self Care with Self via Ambulated [facility] Addendum: 02/18/22 at 0937 by JORGE BARAJAS RN Amended: Links added.
== END 2022-02-18 09:52 | disposition home or self-care (01) ==
LOC: CCL 08:31
PROVIDERS: ATTEND Internal Medicine Cardiovascular Disease
DX: R55 Syncope and collapse (principal); R07.9 Chest pain, unspecified; I10 Essential (primary) hypertension; E78.00 Pure hypercholesterolemia, unspecified; E11.9 Type 2 diabetes mellitus without complications; J43.9 Emphysema, unspecified; K21.9 Gastro-esophageal reflux disease without esophagitis; G47.30 Sleep apnea, unspecified; F41.9 Anxiety disorder, unspecified; F17.210 Nicotine dependence, cigarettes, uncomplicated; Z79.82 Long term (current) use of aspirin; Z79.84 Long term (current) use of oral hypoglycemic drugs; Z79.899 Other long term (current) drug therapy; Z90.49 Acquired absence of other specified parts of digestive tract; Z98.890 Other specified postprocedural states; Z82.49 Family history of ischemic heart disease and other diseases of the circulatory system; Z83.3 Family history of diabetes mellitus
CPT/HCPCS: 33285; C1764; J3490